=== PATIENT | female | born 1955 | race Caucasian/White ===

== ENCOUNTER → 2017-10-09 07:29 | Outpatient (CLI) | payer BC, SELFPAY ==
--- NOTE | 2017-10-09 07:23 | BI_ITS ---
MAMMOGRAPHY - BILATERAL SCREENING REASON FOR EXAM: Female, 61 years old. Routine annual screening examination. PERTINENT HISTORY: Non-contributory. TECHNIQUE: Digital bilateral breast inderjit (3D mammographic acquisition) in the CC and MLO projections. 2-D mediolateral oblique (MLO) and craniocaudad (CC) views of both breasts were obtained. CAD: Full Field Digital Mammography with Computer Added Detection was performed. COMPARISON: Comparison is made with prior study dated August 22, 2016 and June 18, 2014. FINDINGS: Breast Composition: There are scattered areas of fibroglandular density. There are no dominant masses or suspicious calcifications. Stable calcified nodule in the upper outer aspect of the left breast most likely representing a fibroadenoma. No other significant abnormalities are identified. There has been no significant change since the prior study. BI/SCREENING MAMM (CAD), BILAT IMPRESSION: Stable bilateral screening mammogram. Yearly follow-up mammogram recommended. (A) ASSESSMENT CATEGORY: BIRADS Category 2: Benign. A letter regarding these results will be sent to the patient by the facility within 30 days. Approximately 10% of breast cancers are not detected by mammography. A normal mammogram should not delay biopsy of a clinically suspicious abnormality. [id number] Electronically Signed: Brijesh Ruiz MD at 10:25 EDT Tel [phone], Service support ,
== END ==
PROVIDERS: Family Provider Internal Medicine; PCP Internal Medicine; Visit Provider Internal Medicine
DX: Z12.31 Encounter for screening mammogram for malignant neoplasm of breast (principal)
CPT/HCPCS: 77063; 77067

== ENCOUNTER → 2019-03-18 09:56 | Outpatient (CLI) | payer BC, SELFPAY ==
--- NOTE | 2019-03-18 10:02 | RAD_ITS ---
STUDY: X-RAY - RIGHT KNEE REASON FOR EXAM: Female, 63 years old. Right knee pain TECHNIQUE: 4 view(s) of the knee. COMPARISON: None. FINDINGS: Normal visualized distal femur. Normal visualized proximal tibia and fibula. Normal proximal tibiofibular articulation. Normal medial femorotibial compartment. Normal lateral femorotibial compartment. Normal patellofemoral articulation. The soft tissue structures are unremarkable. RAD/Knee 4 or More Views IMPRESSION: Normal x-ray examination of the knee. Electronically Signed: Oscar Boyd DO at 8:30 EST Tel , Service support ,
== END ==
PROVIDERS: Family Provider Internal Medicine; PCP Internal Medicine; Referring Provider Internal Medicine; Visit Provider Internal Medicine
DX: M25.561 Pain in right knee (principal)
CPT/HCPCS: 73564

== ENCOUNTER → 2019-03-25 12:39 | Outpatient (CLI) | payer BC, SELFPAY ==
--- NOTE | 2019-03-25 12:42 | BI_ITS ---
MAMMOGRAPHY - BILATERAL SCREENING 3-D TOMOSYNTHESIS REASON FOR EXAM: Female, 63 years old. Routine annual screening examination. PERTINENT HISTORY: History of breast cysts for 20+ years. TECHNIQUE: 2-D mammograms and 3-D Tomosynthesis of the breast (s) were performed. CAD was performed. COMPARISON: October 09, 2017, August 22, 2016 FINDINGS: The breast composition is almost entirely fat. Scattered benign calcifications are seen. Degenerated fibroadenoma in the left breast is stable. No dense spiculated masses or suspicious microcalcifications are identified. No architectural distortion is identified. There is no skin thickening or retraction. There has been no significant change since the prior study. BI/SCREEN MAMM (CAD) W/JOSE BILAT IMPRESSION: No mammographic signs of malignancy. Routine yearly mammograms recommended. ASSESSMENT CATEGORY: BIRADS Category 2: Benign. A letter regarding these results will be sent to the patient by the facility within 30 days. FOLLOW UP RECOMMENDATION: Yearly follow up mammogram recommended. (A) Approximately 10% of breast cancers are not detected by mammography. A normal mammogram should not delay biopsy of a clinically suspicious abnormality. Electronically Signed: Rosales Hyatt MD at 15:08 EST , Service support ,
--- NOTE | 2019-03-25 12:45 | BD_ITS ---
STUDY: DUAL ENERGY X-RAY ABSORPTIOMETRY / DXA REASON FOR EXAM: Female, 63 years old. The patient is postmenopausal. No loss of height. TECHNIQUE: Bone Mineral Density (BMD) measurements of lumbar spine and bilateral hips were obtained. COMPARISON: Comparison is made with prior study dated August 22, 2016. FINDINGS: Lumbar Spine (L1-L4): g/cm2 (1.047) / T-score (-1.3) / Z-score (0.2) Findings are suggestive of osteopenia with a low fracture risk. Left Femur Total: g/cm2 (0.824) / T-score (-1.5) / Z-score (-0.4) Left Femoral Neck: g/cm2 (0.790) / T-score (-1.8) / Z-score (-0.4) Right Femur Total: g/cm2 (0.882) / T-score (-1.0) / Z-score (0.1) Right Femoral Neck: g/cm2 (0.835) / T-score (-1.5) / Z-score (-0.1) The T-Scores on the most recent prior examination were: Lumbar Spine (L1-L4): There has been worsening of bone density since the previous examination. Left Femur Total: which represents a worsening of 2.1%. Right Femur Total: which represents a worsening of 1.7%. BD/Dexa Bone Density Study IMPRESSION: The patient is considered osteopenic as outlined below according to World Flako Organization (WHO) criteria with a moderate fracture risk. There has been worsening of bone density since the previous examination. Reference Information: The T-score is the number of standard deviations above or below the standard which is normal for young adults at their peak bone mineral density. The World Health Organization (WHO) interprets the T-scores as follows: Above -1 Normal bone density Between -1 and -2.5 Osteopenia Equal to / or below -2.5 Osteoporosis As a practical clinical guideline, osteopenia may be graded as follows: Mild -1 through -1.5 Moderate -1.6 through -2.0 Severe -2.1 through -2.4 The Z-score is the number of standard deviations above or below age-matched controls. A Z-score of less than -1.5 would be considered abnormal. References: 1. NIH Osteoporosis and Related Bone Diseases http://www.osteo.org 2. International Society for Clinical Densitometry http://www.iscd.org 3. National Osteoporosis Foundation http://www.nof.org Electronically Signed: Brijesh Ruiz, at 9:01 EST , Service support ,
== END ==
PROVIDERS: Family Provider Internal Medicine; PCP Internal Medicine; Referring Provider Internal Medicine; Visit Provider Internal Medicine
DX: Z12.31 Encounter for screening mammogram for malignant neoplasm of breast (principal); Z78.0 Asymptomatic menopausal state
CPT/HCPCS: 77063; 77067; 77080

== ENCOUNTER → 2019-05-26 10:58 | Outpatient (CLI) | payer BC, SELFPAY ==
--- NOTE | 2019-05-26 11:09 | EKG12_ITS ---
Test Reason : PRE-OP Blood Pressure : / mmHG Vent. Rate : 069 BPM Atrial Rate : 069 BPM P-R Int : 148 ms QRS Dur : 078 ms QT Int : 408 ms P-R-T Axes : 063 000 030 degrees QTc Int : 437 ms Normal sinus rhythm with sinus arrhythmia Normal ECG Confirmed by REYNALDO FERREIRA, FAMILIA ([id number]), make up editor IRMA STONE ([id number]) on 05/26/2019 12:33:03 PM Referred By: Rosales Gutiérrez Confirmed By:FAMILIA JACOBS MD
[2019-05-26 12:52] LABS: Hematocrit 43.2 % (37-47); Hemoglobin 14.9 g/dL (12.0-15.0); Mean Corp Hgb Conc 34.5 g/dL (32-36); Mean Corpuscular Volume 98.6 fL (81-99); Mean Platelet Vol. 9.2 fl (6.2-12.0); Platelet Count 353 K/mm3 (150-450); RBC Distribution Width CV 11.5 % (11.6-14.6); Red Blood Count 4.38 M/mm3 (4.2-5.4); White Blood Count 7.1 K/mm3 (4.4-11.0)
[2019-05-26 13:05] LABS: Anion Gap 4 (5-15); BUN 13 mg/dL (7-18); BUN/Creat Ratio 21.8 RATIO (10-20); Chloride 104 mmol/L (98-107); EST Glomerular Filtration Rate 108 mL/min (>60); Est Glom Filt Rate - Afr Amer 131 mL/min (>60); Glucose 94 mg/dL (74-106); Potassium 3.4 mmol/L (3.5-5.1); Sodium Level 137 mmol/L (136-145)
== END ==
PROVIDERS: PCP Internal Medicine; Referring Provider Physician Assistant; Visit Provider Physician Assistant
DX: Z01.810 Encounter for preprocedural cardiovascular examination (principal); Z01.818 Encounter for other preprocedural examination
CPT/HCPCS: 36415; 80048; 85027; 93005

== ENCOUNTER 2019-06-25 07:30 | Outpatient (RCR) | payer BC, SELFPAY ==
--- NOTE | 2019-06-11 14:04 | HP.PTEVAL_ITS ---
Patient's Visit Information DAVION URIOSTEGUI is a 63 year old F referred to Physical Therapy by Rosales Gutiérrez PA-C with a diagnosis of R knee arthroscopy 05/04/19. Date of Evaluation: 06/11/19 Physical Therapist: Kalin Cormier PT, ATC - Visit Plan Frequency: 2-3x /Week Duration: 4-6 Weeks Plan: R knee stretching and strengthening, balance and proprio, core stab ex's, nu step, and HEP - Subjective Findings: DOS: 06/04/19. Pt reports she had arthroscopy performed one week ago for a medial meniscal tear. Pt reports she is still sore at this time, and isn't sure she has felt any relief at this time. Pt reports prior to surgery, her R knee would catch and she would experience a lot of pain. Pt reports she has no restrictions at this time. Pt reports she has 13 steps to her bathroom, and negotiates them one step at a time for the most part. No tingling or numbness in R LE. Occasional sleep difficulty secondary to pain. 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 0/10 pain at resting, 3/10 pain at worst - Pain R knee Pain Intensity (Out of 10): 0 Pain Intensity Range: 3 - Objective Neuro: B LE sensation is WNL to light touch. B achilles reflex= 2/3. Girth at joint line: L knee 35 cm, R knee 36.5 cm. Observation: Incisions healing well. No obvious signs of infection. ROM: L knee 0-135, R knee 0-98 degrees. MMT: L knee 5/5 throughout, R knee 3+/5 throughout - Goals Goal 1:: Decrease R knee pain x 50% to aid with sleep Goal Time Frame: 4-6 Weeks Goal 2:: Increase R knee ROM x 20 degrees to aid with restoring a more normal gait pattern Goal Time Frame: 4-6 Weeks Goal 3:: Increase R knee strength x 1 grade to aid with stair negotiation Goal Time Frame: 4-6 Weeks Goal 4:: I with HEP Goal Time Frame: 4-6 Weeks - Rehabilitation Potential Physical Therapy Diagnosis: Pt has R knee pain, weakness, and limited ROM secondary to R knee arthroscopy Rehabilitation Potential: Good - Anticipated Interventions Patient/Client Instruction: Educate patient on: Condition, Plan of Care For the Purpose of:: To improve self management Therapeutic Exercise to Include: Strength training, Endurance training, Balance training, Flexibilty training, Gait and locomotor training, Active ROM, Dynamic Lumbar Stabilization For the Purpose of:: To decrease pain, To increase ROM, To improve muscle pe rformance and motor function Cryotherapy (ice pack, ice massage): Yes For the Purpose of:: To decrease pain Thank you for the opportunity to evaluate your patient. For Medicare and Medicare HMO plans, please review the plan of care and approve it. It will need to be FAXED BACK to us at [phone] for Medicare purposes. For Medicare only, by signing this I certify the plan of care. Please let me know if there are questions or concerns regarding this plan of care. Physician Signature: Date:
--- NOTE | 2019-06-25 07:55 | HP.PTDCSUM ---
HP - PT D/C Summary It has been my pleasure to treat DAVION URIOSTEGUI under orders from Rosales Gutiérrez PA-C, for the diagnosis of R knee arthroscopy 05/04/19 for a total of 4 visit(s). Discharge Date: Please see the following information for a summary of their discharge status. - Subjective Subjective: I feel good. I have no pain - Pain R knee Pain Intensity (Out of 10): 0 - Overall Improvement % Improvement: 95 - Objective Objective/Function: 0/10 pain. R knee MMT: 09/01. R knee ROM: 0-134. Rx goals achieved - Goals Goal 1:: Decrease R knee pain x 50% to aid with sleep Goal Progress: Goal Met Goal 2:: Increase R knee ROM x 20 degrees to aid with restoring a more normal gait pattern Goal Progress: Goal Met Goal 3:: Increase R knee strength x 1 grade to aid with stair negotiation Goal Progress: Goal Met Goal 4:: I with HEP Goal Progress: Goal Met - Plan Plan: discharge - D/C Information If there are questions or concerns regarding this patient's physical therapy, please feel free to call me at [phone]. Thank you for the referral of this patient. Sincerely, Kalin Cormier, PT, ATC
== END 2019-06-25 08:47 | disposition home or self-care (01) ==
LOC: PT 07:30
PROVIDERS: PCP Internal Medicine; Referring Provider Physician Assistant; Visit Provider Physician Assistant
DX: S83.241D Other tear of medial meniscus, current injury, right knee, subsequent encounter (principal)
CPT/HCPCS: 97110; 97161; 97164

== ENCOUNTER → 2019-11-06 09:09 | Outpatient (CLI) | payer BC, SELFPAY ==
--- NOTE | 2019-11-06 09:18 | RAD_ITS ---
STUDY: X-RAY - LEFT FOOT CLINICAL: Female, 64 years old. FALL DOWN STEPS, BRUISING AND SWELLING THROUGH OUT FOOT TECHNIQUE: 3 view(s) of the foot. COMPARISON: None. FINDINGS: Normal talus, calcaneus, and tarsal bones. Normal visualized subtalar, talonavicular, calcaneocuboid, tarsal and tarsometatarsal articulations. Nondisplaced transverse fracture at the base of the fifth metatarsal. Normal metatarsophalangeal joint of the great toe. Normal tibial and fibular sesamoid bones. Normal interphalangeal joint of the great toe. Normal phalanges of the great toe. Normal second through fifth metatarsophalangeal joints. Normal interphalangeal joints and phalanges of the lesser toes. Soft tissue swelling. RAD/Foot min 3 Views IMPRESSION: Nondisplaced transverse fracture through the base of the fifth metatarsal with overlying soft tissue swelling. Electronically Signed: Brijesh Ruiz, at 9:45 EDT , Service support ,
== END ==
PROVIDERS: PCP Internal Medicine; Referring Provider Internal Medicine; Visit Provider Internal Medicine
DX: S92.355A Nondisplaced fracture of fifth metatarsal bone, left foot, initial encounter for closed fracture (principal); W10.9XXA Fall (on) (from) unspecified stairs and steps, initial encounter; Y93.9 Activity, unspecified; Y92.9 Unspecified place or not applicable; Y99.9 Unspecified external cause status
CPT/HCPCS: 73630

== ENCOUNTER → 2021-04-06 10:00 | Outpatient (CLI) | payer BC, SELFPAY ==
--- NOTE | 2021-04-06 10:04 | BI_ITS ---
MAMMOGRAPHY - BILATERAL SCREENING REASON FOR EXAM: Female, 65 years old. Routine annual screening examination. PERTINENT HISTORY: Non-contributory. TECHNIQUE: Digital bilateral breast jose (3D mammographic acquisition) in the CC and MLO projections. 2-D mediolateral oblique (MLO) and craniocaudad (CC) views of both breasts were obtained. CAD: Full Field Digital Mammography with Computer Added Detection was performed. COMPARISON: Comparison is made with prior study dated 03/25/2019 and 10/09/2017. FINDINGS: Breast Composition: There are scattered areas of fibroglandular density. There are no dominant masses or suspicious calcifications. Stable calcified nodule in the upper outer aspect of the left breast. Stable small benign-appearing bilateral axillary lymph nodes. No other significant abnormalities are identified. There has been no significant change since the prior study. BI/SCRN MAMM (CAD)W/JOSE BILAT IMPRESSION: Stable bilateral screening mammogram. Yearly follow-up mammogram recommended. (A) ASSESSMENT CATEGORY: BIRADS Category 2: Benign. A letter regarding these results will be sent to the patient by the facility within 30 days. Approximately 10% of breast cancers are not detected by mammography. A normal mammogram should not delay biopsy of a clinically suspicious abnormality. [id number] Electronically Signed: Brijesh Ruiz MD at 12:34 EST , Service support ,
--- NOTE | 2021-04-06 10:05 | BD_ITS ---
STUDY: DUAL ENERGY X-RAY ABSORPTIOMETRY / DXA REASON FOR EXAM: Female, 65 years old. [id number]. The patient is postmenopausal. TECHNIQUE: Bone Mineral Density (BMD) measurements of lumbar spine and bilateral hips were obtained. COMPARISON: Comparison is made with prior study 03/25/2019. FINDINGS: Lumbar Spine (L1-L4): g/cm2 (0.883) / T-score (-2.0) / Z-score (-0.1) Findings are suggestive of osteopenia with a moderate fracture risk. Left Femur Total: g/cm2 (0.768) / T-score (-1.4) / Z-score (-0.2) Left Femoral Neck: g/cm2 (0.653) / T-score (-1.8) / Z-score (-0.2) Right Femur Total: g/cm2 (0.790) / T-score (-1.2) / Z-score (0.0) Right Femoral Neck: g/cm2 (0.65 to) / T-score (-1.8) / Z-score (-0.2) The T-Scores on the most recent prior examination were: Lumbar Spine (L1-L4): There has been worsening of bone density since the previous examination. Left Femur Total: which represents an improvement of 0.6%. Right Femur Total: which represents a worsening of 3.6%. BD/Dexa Bone Density Study IMPRESSION: The patient is considered osteopenic as outlined below according to World [employer] Organization (WHO) criteria with a moderate fracture risk. There has been worsening of bone density since the previous examination. Reference Information: The T-score is the number of standard deviations above or below the standard which is normal for young adults at their peak bone mineral density. The World Health Organization (WHO) interprets the T-scores as follows: Above -1 Normal bone density Between -1 and -2.5 Osteopenia Equal to / or below -2.5 Osteoporosis As a practical clinical guideline, osteopenia may be graded as follows: Mild -1 through -1.5 Moderate -1.6 through -2.0 Severe -2.1 through -2.4 The Z-score is the number of standard deviations above or below age-matched controls. A Z-score of less than -1.5 would be considered abnormal. References: 1. NIH Osteoporosis and Related Bone Diseases www osteo.org 2. International Society for Clinical Densitometry www iscd.org 3. National Osteoporosis Foundation www nof.org Electronically Signed: Brijesh Ruiz MD at 9:25 EST , Service support ,
== END ==
PROVIDERS: PCP Internal Medicine; Visit Provider Internal Medicine
DX: Z12.31 Encounter for screening mammogram for malignant neoplasm of breast (principal); Z78.0 Asymptomatic menopausal state; M85.80 Other specified disorders of bone density and structure, unspecified site
CPT/HCPCS: 77063; 77067; 77080

== ENCOUNTER 2021-06-23 09:28 | Outpatient (CLI) | payer BC, SELFPAY ==
[2021-06-23 10:21] LABS: Absolute Lymphocyte Count 1.96 X10^3/uL (0.83-4.51); Basophil# 0.06 X10^3/uL; Basophil% 0.9 % (0-1); Eosinophil# 0.22 X10^3/uL; Eosinophils% 3.2 % (0-5); Hematocrit 43.2 % (37-47); Hemoglobin 14.1 g/dL (12.0-15.0); Lymphocyte # 1.96 X10^3/ul (0.83-4.51); Lymphocyte % 28.3 % (19-41); Mean Corp Hgb Conc 32.6 g/dL (32-36); Mean Corpuscular Hgb 33.7 pg (27.0-32.0); Mean Corpuscular Volume 103.3 fL (81-99); Monocyte# 0.65 X10^3/uL; Monocyte% 9.4 % (0-10); NRBC Flagged by Analyzer 0 % (0-5); Neutrophil # 4.01 X10^3/uL (2.7-7.7); Neutrophil % 57.8 % (47-70); Platelet Count 321 K/mm3 (150-450); RBC Distribution Width CV 11.8 % (11.6-14.6); RBC Distribution Width SD 44.7 fl (35.1-43.9); Red Blood Count 4.18 M/mm3 (4.2-5.4); White Blood Count 6.9 K/mm3 (4.4-11.0)
[2021-06-23 10:48] LABS: ALB/GLOB Ratio 0.9 RATIO (0.9-2.4); AST(SGOT) 57 U/L (15-37); Alanine Aminotransfer ALT/SGPT 47 U/L (13-56); Albumin, Serum 3.4 g/dL (3.2-5.0); Alkaline Phosphatase 107 U/L (45-117); Anion Gap 4 (5-15); BUN 16 mg/dL (7-18); BUN/Creat Ratio 22.6 RATIO (10-20); Calcium,Total 9.2 mg/dL (8.5-10.1); Chloride 105 mmol/L (98-107); Creatinine, Serum 0.71 mg/dL (0.55-1.02); EST Glomerular Filtration Rate 88 mL/min (>60); Est Glom Filt Rate - Afr Amer 106 mL/min (>60); Globulin 3.8 g/dL (2.2-4.2); Glucose 111 mg/dL (74-106); Potassium 4.3 mmol/L (3.5-5.1); Protein, Total 7.2 g/dL (6.4-8.2); Sodium Level 139 mmol/L (136-145); Thyroid Stim Hormone (TSH) 3.31 uIU/mL (0.358-3.74)
[2021-06-25 14:08] LABS: CHOLESTEROL TOTAL 288 mg/dL (100-199); HDL-C 74 mg/dL (>39); SMALL LDL-P 377 nmol/L (<=527); TRIGLYCERIDES 166 mg/dL (0-149)
[2021-06-25 17:30] LABS: INSULIN RESISTANCE SCORE 41 (<=45); LDL SIZE 21.8 nm (>20.5); LDL-C (NIH CALC) 184 mg/dL (0-99); LDL-P 1821 nmol/L (<1000)
== END 2021-06-23 23:59 | disposition home or self-care (01) ==
LOC: MTLAB 09:30
PROVIDERS: PCP Internal Medicine; Visit Provider Internal Medicine
DX: R94.31 Abnormal electrocardiogram [ECG] [EKG] (principal); E78.00 Pure hypercholesterolemia, unspecified
CPT/HCPCS: 36415; 80053; 80061; 83704; 84443; 85025

== ENCOUNTER 2022-03-22 08:58 | Emergency (ER) | payer BC, SELFPAY ==
[2022-03-22 08:58] VITALS: BP 167/98; PULSE 94; RESP 14; TEMP 36.2; O2SAT 97; BMI 28.8
--- NOTE | 2022-03-22 09:20 | EX.ED.GENINJ ---
HPI History of Present Illness Chief Complaint: Laceration Detail of Chief Complaint: Hand laceration Informant: patient Onset/Context/Timing Onset: Yesterday Narrative Narrative: Patient presents secondary to laceration to the left palm. Approximate 15 hours ago she was working in her kitchen when she cut her left palm with a sharp knife. She is kept the area clean but was not sure she needed stitches. Tetanus shot was within 10 years. PFSH PFSH Medical History no medical history no medical history Home Medications NK 03/22/22 [History Last Taken Unknown] Allergy/AdvReac Type Severity Reaction Status Date / Time codeine AdvReac Vomiting Verified 03/22/22 09:00 Surgical History no surgical history Social History Smoking Status: Never smoker ROS ROS ED Constitutional Constitutional ED: Denies chills or fever(s) Eyes Eyes: Denies change in vision ENT ENT ED: Denies rhinorrhea or sore throat Cardiovascular Cardiovascular: Denies chest pain Respiratory/Chest Respiratory/Chest: Denies cough or dyspnea Gastrointestinal Gastrointestinal: Denies abdominal pain or vomiting Genitourinary Genitourinary ED: Denies dysuria Musculoskeletal Musculoskeletal: Reports extremity pain; Denies back pain Integumentary Reports other Details: Left palm laceration ; Denies Abrasions or rash Neurologic Neurologic: Denies headache(s) or weakness Psychiatric Psychiatric: Denies anxiety or depression Allergic/Immunologic Allergic/Immunologic ED: Denies lip swelling or urticaria EXAM Physical Exam Const Vital Signs: 03/22/22 08:58 Temperature 97.1 F L Temperature Source Temporal Pulse Rate 94 Respiratory Rate 14 Blood Pressure 167/98 H Blood Pressure Mean 121 Pulse Ox 97 Oxygen Delivery Method Room Air Positive well nourished and well developed General Appearance ED: well developed HEENT atraumatic Eyes EOMs intact bilaterally Chest Wall inspection of chest normal Resp normal respiratory effort Extremity Extremity Narrative: 1.5 cm superficial laceration noted to the thenar eminence of the left palm. No active bleeding. Full range of motion of all digits with good cap refill and sensation. Neuro oriented x3, no focal motor deficits and no sensory deficits noted Skin Skin Narrative: Laceration as noted above. MDM MDM MDM Narrative Medical decision making narrative: Wound is greater than 12 hours old and patient would prefer to glue the wound if possible. I think this is acceptable given the superficial nature of the laceration and location. Wound was thoroughly cleansed and irrigated. Dermabond is placed over the wound. Wound care as discussed and return instructions given. Discharge Plan Triage Chief Complaint: Laceration ED Provider: Samantha Joe Dx/Rx/DC Orders Clinical Impression: Hand laceration Instructions: ED Laceration, Hand: All Closures Prescriptions: No Action NK Primary Care Provider: Shanell Vera Referrals: Shanell Vera DO [Primary Care Provider] - As Needed Disposition Disposition: Home, Self Care
== END 2022-03-22 09:43 | disposition home or self-care (01) ==
LOC: ED 09:36
PROVIDERS: Emergency Provider Emergency Medicine; PCP Internal Medicine; Visit Provider Emergency Medicine
DX: S61.412A Laceration without foreign body of left hand, initial encounter (principal); W26.0XXA Contact with knife, initial encounter; Y92.000 Kitchen of unspecified non-institutional (private) residence as the place of occurrence of the external cause
CPT/HCPCS: 12001; 99283

== ENCOUNTER → 2024-01-21 | Outpatient (CLI) | payer MEDICARE, BC, SELFPAY ==
--- NOTE | 2024-01-21 07:22 | CT_ITS ---
PROCEDURE: CT LEFT KNEE WITHOUT CONTRAST REASON FOR EXAM: Female, 68 years old. Preoperative planning for the [employer] Robotic knee surgery. Knee pain. TECHNIQUE: Transaxial CT of the hip, knee and ankle were obtained. Coronal and sagittal reconstruction images of the knee were provided. Individualized dose optimization techniques were used for this CT. COMPARISON: None. FINDINGS: Standard protocol for the preoperative planning for the [employer] robotic knee surgery was performed. 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 CT/Extremity Lower without Contra IMPRESSION: Preoperative M[employer] Robotic knee surgical CT evaluation with findings as described above. Electronically Signed: Rosales Hyatt MD at 9:29 EDT ,
== END | disposition home or self-care (01) ==
LOC: CT 07:18
PROVIDERS: PCP Internal Medicine; Referring Provider Specialist; Visit Provider Specialist
DX: M17.12 Unilateral primary osteoarthritis, left knee (principal); M94.262 Chondromalacia, left knee; S83.242D Other tear of medial meniscus, current injury, left knee, subsequent encounter; X58.XXXD Exposure to other specified factors, subsequent encounter
CPT/HCPCS: 73700

== ENCOUNTER 2024-01-28 07:00 | Observation (INO) | payer MEDICARE, BC, SELFPAY ==
[2024-01-10 15:53] LABS: Absolute Lymphocyte Count 2.06 X10^3/uL (0.83-4.51); Absolute Neutrophil Count 4.1 X10^3/uL (2.0-7.7); Basophil# 0.08 X10^3/uL; Basophil% 1.1 % (0-1); Eosinophil# 0.18 X10^3/uL; Eosinophils% 2.5 % (0-5); Hematocrit 41.5 % (37-47); Hemoglobin 13.8 g/dL (12.0-15.0); Lymphocyte # 2.06 X10^3/ul (0.83-4.51); Lymphocyte % 28.7 % (19-41); Mean Corp Hgb Conc 33.3 g/dL (32-36); Mean Corpuscular Hgb 33.7 pg (27.0-32.0); Mean Corpuscular Volume 101.2 fL (81-99); Mean Platelet Vol. 9.3 fl (6.2-12.0); Monocyte# 0.74 X10^3/uL; Monocyte% 10.3 % (0-10); NRBC Flagged by Analyzer 0 % (0-5); Neutrophil # 4.08 X10^3/uL (2.7-7.7); Platelet Count 326 K/mm3 (150-450); RBC Distribution Width CV 11.4 % (11.6-14.6); RBC Distribution Width SD 42.6 fl (35.1-43.9); White Blood Count 7.2 K/mm3 (4.4-11.0)
[2024-01-10 15:57] LABS: Albumin, Serum 3.4 g/dL (3.2-5.0); Anion Gap 8 (5-15); BUN 11 mg/dL (7-18); BUN/Creat Ratio 16.2 RATIO (10-20); Calcium,Total 9.8 mg/dL (8.5-10.1); Chloride 101 mmol/L (98-107); Creatinine, Serum 0.68 mg/dL (0.55-1.02); EST Glomerular Filtration Rate 92 mL/min (>60); Est Glom Filt Rate - Afr Amer 111 mL/min (>60); Glucose 110 mg/dL (74-106); Magnesium 2.1 mg/dL (1.6-2.6); Potassium 3.9 mmol/L (3.5-5.1); Sodium Level 136 mmol/L (136-145)
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
[2024-01-28] VITALS (15 sets, daily range): BP systolic 101–162; BP diastolic 54–100; PULSE 62–88; RESP 16–18; TEMP 35.8–37.4; O2SAT 93–100; BMI 27.3
[2024-01-28] MEDS: Vancomycin HCl 1,250 MG in 0.9% Normal Saline (250mL Bag) 250 ML 167 MG IV (07:23)
[2024-01-28] MEDS: Acetaminophen 500 MG Tablet 1000 MG PO ×3 (07:23→22:28)
[2024-01-28] MEDS: Magnesium 1 GM over 15 mins IV (07:23)
[2024-01-28] MEDS: Gabapentin 600 MG Tablet PO (07:23)
[2024-01-28] MEDS: Lactated Ringers 1,000 ML 999 ML IV ×2 (07:23→10:34)
--- NOTE | 2024-01-28 07:36 | PCM.PRE.AN2 ---
ASA Classification* ASA Classification ASA Classification: 2 Assessment & Plan Anesthesia* Anesthesia Assessment Anesthesia Assessment: Discussed sedation and/or anesthesia options, risks, benefits, and alternatives with patient/parents/legal guardian/POA. Questions invited. The patient/parents/legal guardian/POA seems to understand and agrees to proceed with anesthesia plan. Reviewed the physical assessment, medical history, allergy history and patient home medications list prior to surgery/procedure/anesthetic and documented any changes. Performed airway and anesthesia risk assessments. Anesthesia Type Anesthesia Type: Spinal (block consented) Anesthesia Focused Assessment* Temperature: 99.4 F Pulse Rate: 85 Blood Pressure: 162/92 Respiratory Rate: 18 Pulse Ox: 99 Airway Assessment Mouth opens: >3 cm Mallampati Score: II Focused Labs Anesthesia Preop lab: CBC WBC 7.2 K/mm3 (4.4-11.0) 01/10/24 11:46 RBC 4.10 M/mm3 (4.2-5.4) L 01/10/24 11:46 Hgb 13.8 g/dL (12.0-15.0) 01/10/24 11:46 Hct 41.5 % (37-47) 01/10/24 11:46 Plt Count 326 K/mm3 (150-450) 01/10/24 11:46 CHEMISTRY Potassium 3.9 mmol/L (3.5-5.1) 01/10/24 11:46 Sodium 136 mmol/L (136-145) 01/10/24 11:46 Magnesium 2.1 mg/dL (1.6-2.6) 01/10/24 11:46 BUN 11 mg/dL (7-18) 01/10/24 11:46 Creatinine 0.68 mg/dL (0.55-1.02) 01/10/24 11:46 Glucose 110 mg/dL (74-106) H 01/10/24 11:46 TSH 3.31 uIU/mL (0.358-3.74) 06/23/21 09:32 COAG Pre-Assessment Diagnosis/Proposed Procedure Planned Operative Procedure(s): ROBOTIC ASSISTED LEFT TOTAL KNEE ARTHROPLASTY Anesthesia History 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 When Was Last Pacemaker Check QUESTION #4 FULL TEXT: You/Your Family Experience fever (hyperthermia) with Anesthesia Last Oral Intake Last Oral intake: Last Oral Intake NPO since 05:30 01/28/24 07:19 Meds taken in AM with sips of No 01/28/24 07:19 water? Meds patient instructed to take am of surgery PONV PONV - adult secondary education instructor: PONV - adult secondary education instructor Female Yes 01/17/24 14:17 HX of Motion Sickness Yes 01/17/24 14:17 HX of N/V After Surgery No 01/17/24 14:17 Non-Smoker Yes 01/17/24 14:17 Duration of Surgery greater Yes 01/17/24 14:17 than 60 minutes Number of Risk Factors 4 01/17/24 14:17 PONV Score Severe Risk 01/17/24 14:17 Height & Weight Height & Weight: Anesthesia: Height & Weight Height 5 ft 5 in 01/28/24 07:19 Weight: 74.7 kg 01/28/24 07:19 Body Mass Index (BMI) 27.3 01/28/24 07:19 Respiratory Assessment Respiratory Assessment - adult secondary education instructor: Respiratory Tract Infection Hx - adult secondary education instructor Hx Respiratory Tract Infection No 01/17/24 14:17 STOP Sleep Apnea STOP Sleep Apnea - adult secondary education instructor: STOP Sleep Apnea - adult secondary education instructor Hx Hypertension No 01/17/24 14:17 Hx Sleep Apnea No 01/17/24 14:17 CPAP BIPAP Do you snore loudly (louder No 01/17/24 14:17 than talking or can be heard Do you often feel tired/ Yes 01/17/24 14:17 fatigued/ sleepy during daytime? Has anyone observed you stop No 01/17/24 14:17 breathing during sleep? STOP Results Negative 01/17/24 14:17 QUESTION #5 FULL TEXT : Do you snore loudly (louder than talking or can be heard through closed doors)? 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 Specify any problems Hx of Preganancy in last 3 No 01/17/24 14:17 Months Nurse Filling Out Transfusion DSCHRIBER 01/17/24 14:17 & Questions: Date: 01/17/24 01/17/24 14:17 Time: 14:18 01/17/24 14:17 Patient unable to answer at this time (ie. confused, unrespo /Reproduction History /Reproductive History - adult secondary education instructor: /Reproductive Hx- adult secondary education instructor Hx Now No 01/17/24 14:17 Gestational Age (in weeks): EDC: Hx Hx Para Hx Section SAB No 01/17/24 14:17 Active Medications Active Medications: Current Medications Generic Name Dose Route Start Last Admin Trade Name Freq PRN Reason Stop Dose Admin Acetaminophen 1,000 mg 01/28/24 08:45 01/28/24 07:23 Acetaminophen 500 Mg Tablet PO 01/28/24 08:46 1,000 mg X1 ONE Administration Acetaminophen 1,000 mg 01/28/24 14:00 Acetaminophen 500 Mg Tablet PO Q8 AMADEO Aspirin 81 mg 01/28/24 10:00 Aspirin 81 Mg Tab.Chew PO BID AMADEO Atorvastatin Calcium 40 mg 01/28/24 22:00 Atorvastatin Calcium 40 Mg Tablet PO QHS AMADEO Sodium Chloride 77.4 ml/ 0 ml 01/28/24 08:45 Ropivacaine 200 mg/ OPERA.SITE 01/28/24 08:46 Epinephrine HCl 0.6 mg/ X1 ONE Ketorolac Tromethamine 30 mg/ Morphine Sulfate 5 mg Dexamethasone Sodium Phosphate 10 mg 01/28/24 08:45 Dexamethasone 10 Mg/Ml Vial IV 01/28/24 08:46 X1 ONE Doxycycline Monohydrate 100 mg 01/29/24 13:00 Doxycycline 100 Mg Capsule PO BID [facility] Enteral Nutritional Formula 237 ml 01/28/24 08:00 Ensure Surgery 237 Ml Liquid PO TIDCM [facility] Famotidine 20 mg 01/28/24 10:00 Famotidine 20 Mg Tablet PO DAILY [facility] Gabapentin 600 mg 01/28/24 08:45 01/28/24 07:23 Gabapentin 600 Mg Tablet PO 01/28/24 08:46 600 mg X1 ONE Administration Lactated Ringer's 1,000 mls @ 999 mls/hr 01/28/24 08:45 01/28/24 07:23 IV 01/28/24 09:45 999 mls/hr .Q1H1M AMADEO Administration Tranexamic Acid 1,000 mg/ 110 mls @ 660 mls/hr 01/28/24 08:45 Sodium Chloride IV 01/28/24 08:54 X1 ONE Tranexamic Acid 1,000 mg/ 110 mls @ 660 mls/hr 01/28/24 09:45 Sodium Chloride IV 01/28/24 09:54 X1 ONE Lactated Ringer's 1,000 mls @ 999 mls/hr 01/28/24 09:45 IV 01/28/24 10:45 .Q1H1M [facility] Lactated Ringer's 1,000 mls @ 125 mls/hr 01/28/24 10:45 IV 01/28/24 18:44 .Q8H [facility] Vancomycin HCl 1,250 mg/ 275 mls @ 167 mls/hr 01/28/24 07:15 01/28/24 07:23 Sodium Chloride IV 01/28/24 08:53 167 mls/hr PREOP ONE Administration Magnesium Sulfate 1 gm/ 102 mls @ 408 mls/hr 01/28/24 08:45 01/28/24 07:23 Dextrose IV 01/28/24 08:59 408 mls/hr X1 ONE Administration Cefazolin Sodium 1 gm in 50 mls @ 150 mls/hr 01/28/24 14:00 IV 01/28/24 22:19 Q8 [facility] Insulin Human Lispro 1 - 6 unit 01/28/24 08:45 Insulin Lispro 100 Unit/Ml Insuln.Pen SC 01/28/24 14:45 Q4H PRN PRN BG>/= 180, SEE PROTOCOL Protocol Ketorolac Tromethamine 15 mg 01/28/24 07:00 Ketorolac 15 Mg/Ml Vial IV 01/30/24 07:02 Q6H PRN PRN Pain Score 1-5 Lorazepam 0.5 mg 01/28/24 07:00 Lorazepam 0.5 Mg Tablet PO Q12H PRN anxiety Meloxicam 7.5 mg 01/30/24 10:00 Meloxicam 7.5 Mg Tablet PO BID [facility] Morphine Sulfate 2 - 4 mg 01/28/24 07:00 Morphine 2 Mg/Ml Syringe IV Q2H PRN PRN Pain Score 6-10 Non-Formulary Medication 125 mcg 01/28/24 10:00 Cholecalciferol (Vitamin D3) [Vitamin D3] PO DAILY [facility] Non-Formulary Medication 3,000 mcg 01/28/24 10:00 Cyanocobalamin (Vitamin B-12) [Vitamin B-12] SL DAILY [facility] Ondansetron HCl 4 mg 01/28/24 07:00 Ondansetron 4 Mg/2 Ml Vial IV Q8H PRN PRN NAUSEA Oxycodone HCl 5 - 10 mg 01/28/24 07:00 Oxycodone 5 Mg Tablet PO Q4H PRN PRN Pain Score 4-10 Promethazine HCl 12.5 mg 01/28/24 07:00 Promethazine 25 Mg/Ml Syringe IM Q6H PRN PRN NAUSEA/VOMITING Protocol Senna/Docusate Sodium 2 tablet 01/28/24 10:00 Senna/Docusate Sodium 1 Tablet PO BID [facility] Medical History Wears glasses Post-menopausal Anxiety Alcohol use Ambulates with cane Arthritis Easy bruising History of ulceration Gastric reflux Non-smoker History of edema History of pain when walking History of irregular heartbeat Home Medications ?Medication ?Instructions ?Recorded ?Last Taken ?Type atorvastatin 40 mg tablet 40 mg PO QHS 01/17/24 01/27/24 History cholecalciferol (vitamin D3) 125 125 mcg PO DAILY 01/17/24 01/27/24 History mcg (5,000 unit) tablet (Vitamin D3) cyanocobalamin (vitamin B-12) 3,000 mcg sublingual DAILY 01/17/24 01/27/24 History 5,000 mcg/mL sublingual drops (Vitamin B-12) famotidine 20 mg tablet (Acid 20 mg PO DAILY PRN PRN GERD 01/17/24 01/27/24 History Controller) lorazepam 0.5 mg tablet (Ativan) 0.5 mg PO Q12H PRN anxiety 01/17/24 Unknown History meloxicam 15 mg tablet 15 mg PO DAILY 01/17/24 01/25/24 History Allergy/AdvReac Type Severity Reaction Status Date / Time codeine AdvReac Vomiting Verified 01/28/24 07:18 Surgical History Hx of colonoscopy Hx of right cataract extraction Hx of left cataract extraction Hx of knee surgery Social History Smoking Status: Never smoker Review of Systems (Anesthesia) ROS Narrative System reviewed and no additional complaints, except as documented.
[2024-01-28 07:52] LABS: Bedside Glucose 131 mg/dL (74-106)
[2024-01-28] MEDS: TXA 1000mg in NS100 100ml (IVPB at Incision) 660 MG IV (08:35)
[2024-01-28] MEDS: JPS (Morphine 10mg/ml) OPERA.SITE (08:41)
--- NOTE | 2024-01-28 08:45 | KNEE_PTH ---
PATIENT: DAVION URIOSTEGUI LOC: [facility] U#:[id number] AGE/SX: 68/F ROOM: PA319 RE01/28/[address]: Dr. Evin Diane MD : 1955 BED: 1 DIS: 01/29/2024 SPEC #: [id number] RECD: 01/28/24 13:17 STATUS: VU BROOKS #: [id number] AMY: 01/28/24 08:[address]: Evin Diane DEPT: SURGICAL PATHOLOGY RECD BY: Lula Viera ENTERED: 01/28/24 13:41 SP TYPE: TOTAL KNEE OTHR DR: DO Dr. Vishal Mills DO Tissues: Knee, NOS Procedures: Decalcification bone/plaque Surgery Specimen Level IV HEADER OPERATION: Robotic assisted left total knee arthroplasty PRE-OP DIAGNOSIS: Severe left knee osteoarthritis with varus deformity TISSUE SUBMITTED: Left knee bone and tissue MICROSCOPIC DIAGNOSIS Bone and soft tissue, left knee, total knee replacement/resection: Pieces of bone with degenerative osteoarthritic changes. Fibroadipose tissue, fibroconnective tissue and reactive synovial tissue. JORY: 01/31/2024 MICROSCOPIC DESCRIPTION Slides are reviewed. GROSS DESCRIPTION Received is one container designated bone and soft tissue left knee. The specimen consists of multiple fragments of torres-yellow bone measuring in aggregate 9.5 x 8.0 x 2.5 cm. Also in the specimen container are multiple fragments of yellow-white soft tissue measuring in aggregate 9.0 x 6.0 x 2.0 cm. A number of bony fragments contain articular surfaces consistent with tibial plateau and femoral condyle and displaying prominent osteophyte formation, eburnation and bone erosion. Dispatch Associate sections are submitted in two cassettes as follows: 1 - soft tissue, 2 - bone after decalcification. / JORY. 01/28/2024 TC:5 CPT: 20214, 51252
[2024-01-28] MEDS: dexAMETHasone 10 MG/ML Vial IV (08:54)
[2024-01-28] MEDS: TXA 1000mg in NS100 100ml (IVPB at Closure) 660 MG IV (09:27)
--- NOTE | 2024-01-28 09:30 | PCM.OPRPT ---
Report of Operation Date of Procedure: 01/28/24 Pre-Operative Diagnosis: Left knee primary osteoarthritis Post-Operative Diagnosis: Left knee primary osteoarthritis Surgery/Procedure Performed:: Left knee minimally invasive robotic assisted total knee replacement Description of Surgical Findings:: Stable knee with good patella tracking Surgeon: Evin Diane air carrier operations inspector: Sony Abbasi Type of Anesthesia: Spinal Anesthesiologist: Yonatan Cantor Special Medications: 2 g Ancef, 1 g TXA at incision, 1 g TXA closure, 10 mg Decadron, joint cocktail (5 mg Duramorph, 30 mL of 0.5% Ropivicaine, 1000 units of epinephrine, 30 mg of Toradol), vancomycin Specimen's removed: Bony cuts Estimated Blood Loss (mL): 75 Fluids Replaced: 600 mL crystalloid Description of Procedure: Implants used: 1. Darshan size 2 triathlon cruciate retaining distal femoral press-fit component 2. Darshan size 2 press-fit tritanium tibial baseplate 3. Darshan X3 10 mm CS polyethylene Brief history operative indications: 68-year-old F with history of left knee osteoarthritis with radiographic findings with loss of joint space, osteophyte formation and subchondral sclerosis. Failed conservative measures as mentioned in the H&P. Discussion of total knee arthroplasty as well as risk and benefits were discussed the patient including but not limited to blood loss, DVTs, PEs, neurovascular damage, general risk of anesthesia including loss of life, and stiffness or instability were discussed with patient. Patient demonstrated understanding and was able to sign informed consent. Procedure: On the date of procedure patient's left lower extremity was marked in the preoperative area. The patient was then taken back to the operating room where the patient was placed on the table in the supine position. All bony prominences were identified a well-padded. Anesthesia assumed control of the C-spine and airway and remained controlled throughout the remainder of the procedure. A tourniquet was placed on the left upper thigh and the leg was prepped in a sterile fashion. The surgeon then scrubbed at this time .Upon reentering the room left lower extremity was draped in a standard orthopedic fashion. A timeout was then called and everyone agreed upon the side, the site, the procedure to be performed, patient's identity and antibiotics given. Esmarch bandage was used to exsanguinate the extremity and the tourniquet was placed up to 250 mmHg with the knee in flexion. A midline skin incision was made and sharp dissection was taken down through skin subcutaneous tissue and fat. The standard medial parapatellar incision was made and the patella was subluxed laterally. An Appropriate deep MCL release was done and the fat pad was resected. Our attention was then directed to the patella. The patella was everted and found to have appropriate cartilage to be retained. The knee was then flexed up in 2 femoral pins were placed inside the incision and 2 tibial pins were placed outside the incision in the medial tibia bicortically. Once this was completed the 2 checkpoints in the femur and tibia were placed. Knee was then flexed up and the bony landmarks were registered. Once this was completed knee was taken through range of motion and manually stressed allowing us to a plan for an appropriate tibial cut. The robotic arm was brought into the field sterilely and checkpoint and saw were registered. Based on the patient's deformity the tibial cut was made neutral to the tibial axis. At this time the tensioner was then placed in the joint and ligament tension was checked at 90 degrees and full extension. Based on the patient's ligamentous tension appropriate adjustments were made to the operative plan and ligament releases were done. Once we were happy with our operative plan with balanced flexion and extension gaps our attention was directed to the femur. The robot was brought into the field sterilely and registered. Posterior condylar cuts, anterior chamfer cuts and anterior cuts were appropriately made for a size 2 femur. When these were completed the saws were switched out in the distal femoral and posterior chamfer cuts were made. Protecting the soft tissue throughout this time. A size 2 tibial base plate was selected. the knee was flexed to 90 degrees and the soft tissues and posterior osteophytes were removed from the joint. 40 cc of the periarticular injection was injected into the posterior medial corner of the joint. The appropriate trials were then placed on the femur and tibia. A trial polyethylene was trialed to ensure proper balancing and stability of the knee. The appropriate tibial internal rotation was then marked with a bovie. Our attention was then directed to the patella. Patellar tracking was checked and deemed appropriate. Once we were happy lug holes were drilled for the femur and trial components were removed. the tibia was subluxed and pinned into place and the keel was punched and drilled appropriately. Final components were verified and opened, and cement was mixed in a vacuum. Corhythm Simplex cement was used. The wound was copiously irrigated with normal saline. When the cement was ready the components were impacted into place starting with the tibia, femur. The trial poly component was placed and the knee was placed in full extension. All excess cement was removed in the process. Once the cement had cured the tracking, alignment and balance were verified and a size 10 mm CS polyethylene component was placed. Once the final components were placed a 3-minute dilute Betadine lavage was performed followed by an Irrisept lavage was performed and the wound was copiously irrigated with normal saline solution and the periarticular injection was given. The wound was closed in a layer otero fashion using #1 vicryl interrupted sutures for the arthrotomy, 2-0 interrupted Vicryl suture for the subcuticular layer and lupillo for final skin closure. A sterile compressive dressing was then placed. The patient was then awakened from anesthesia, transferred to the [facility] and transferred to the PACU for recovery. Post op plan DVT ppx: ASA 81mg BID, thigh high compression stockings Follow up: in office in 2 weeks for wound check PT: to start POD #0 at hospital, outpatient PT should be arranged. Extended oral antibiotics postoperatively due to positive staph screening. Doxycycline 100 mg p.o. twice daily for 2 weeks My physician instructional assistant was a vital part of this case. He was important in appropriate retraction during the case, and protection of soft tissues during bony cuts. His intimate knowledge of the case and my steps aided in safe and expedient completion of the procedure as well as appropriate position of the leg during the case. He was also vital in assisting with closure under my direct supervision. Due to the complexity of this case robotic arm was used to assist in the surgery to improve accuracy and clinical outcomes. Complications No intraoperative complications Admit VTE Documentation VTE Present on Admission: No VTE Mechan Device Prophylaxis: SCD's and Thigh High AMRIT Hose VTE Pharm Prophylaxis ordered?: Yes
--- NOTE | 2024-01-28 10:35 | RAD_ITS ---
STUDY: X-RAY - LEFT KNEE REASON FOR EXAM: Female, 68 years old. Post op -- AP and Lateral xray of operative knee in PACU. TECHNIQUE: 2 views of the left knee. COMPARISON: None. FINDINGS: There are new postoperative changes related to left total knee arthroplasty with patellar resurfacing. There is a vertical staple line along the anterior aspect of the knee. There is gas in the patellofemoral joint recess and anterior soft tissues, compatible with recent surgery. The orthopedic hardware components are intact. There is no periprosthetic fracture. Normal proximal tibiofibular articulation. RAD/Knee 1 or 2 Views IMPRESSION: New postoperative changes related to left knee total knee arthroplasty. Electronically Signed: Thien Pike MD at 11:24 EDT ,
--- NOTE | 2024-01-28 13:09 | PCM.POST.ANE ---
Anesthesia: Postop Eval I Current Vital Signs Temperature: 96.5 F Pulse Rate: 88 Blood Pressure: 102/59 Respiratory Rate: 16 Pulse Ox: 96 Oxygen Delivery Method: Room Air Assessment Airway patent: Yes Spontaneous unlabored respirations: Yes Mental status: Awake and Calm nausea: No Vomiting: No Anesthesia Complication: No Fluid Hydration Crystalloid volume administer (ml): 800 Total IV fluid infused: 800 Progress Note Anesthesia document: Postop Eval 1 completed: Yes
[2024-01-28] MEDS: Senna/Docusate Sodium 1 Tablet 2 TABLET PO (13:49)
[2024-01-28] MEDS: Aspirin 81 MG TAB.CHEW PO ×2 (13:50→22:29)
[2024-01-28] MEDS: Famotidine 20 MG Tablet PO (13:50)
--- NOTE | 2024-01-28 16:17 | CASEMGMT ---
Addendum entered by Haley Ling 01/28/24 16:20: A SNF list was declined due to pt already having FOC in mind. BEATRIZ Buckner Original Note: Social Work- SW met with pt who states that she is wanting referral to [facility]. SW completed referral. BEATRIZ Buckner
[2024-01-28] MEDS: Cefazolin 1 GM/50 ML BAG IV (16:33)
--- NOTE | 2024-01-28 19:18 | PCM.PN.HOSP ---
Reason for Visit Reason for Visit: Diagnoses Encounter for other preprocedural examination (01/28/24) Subjective Subjective Patient was seen and examined today, she underwent a total left minimally invasive robotic assisted knee replacement due to osteoarthritis. Patient has a history of hyperlipidemia, it is planned that the patient will probably go to the rehab unit at [facility] if we can get insurance approval for this. Objective Data Objective Data Vital Signs: Vital Signs Temp Pulse Resp BP Pulse Ox O2 Del Method O2 Flow Rate 97.4 F L 85 16 121/79 H 96 Room Air 1 01/28/24 18:40 01/28/24 18:40 01/28/24 18:40 01/28/24 18:40 01/28/24 18:40 01/28/24 18:40 01/28/24 14:43 Oxygen Flow Rate (L/min) 1 Oxygen Delivery Method Room Air Weight: 74.7 kg Body Mass Index (BMI) 27.3 Intake & Output: Intake and Output for Last 24 Hours 01/26/24 01/27/24 01/28/24 23:59 23:59 23:59 Intake Total 2947 / 2947 Balance 2947 / 2947 Lab / Micro Data 01/10/24 11:46 01/10/24 11:46 Labs: Laboratory Results - last 24 hr 01/28/24 07:18: POC Glucose 131 H Micro: Microbiology 01/10/24 11:46 Nasal Secretion Nasal Screen MRSA/MSSA - Final Radiography Diagnostic Testing: Radiology Impression Knee X-Ray 01/28/24 10:35 IMPRESSION: New postoperative changes related to left knee total knee arthroplasty. Electronically Signed: Thien Pike MD at 11:24 EDT , Physical Exam Const alert, oriented x3, no apparent distress and healthy appearing General Appearance: cooperative, well kempt and well developed Orientation / Consciousness: awake, oriented to person, oriented to place and oriented to time HEENT normocephalic, head/scalp atraumatic and moist oral mucous membranes Eyes PERRL, EOMs intact bilaterally and conjunctivae normal Neck supple, no JVD, thyroid normal and no carotid bruits General: trachea midline Resp normal respiratory effort, no retractions, no use of accessory muscles and clear to auscultation bilaterally Auscultation: Negative for rales, rhonchi or wheezes Cardio regular rate, regular rhythm, S1 normal heart sound, S2 normal heart sound, no murmurs, no rub and no gallops GI normal to inspection, nondistended, normoactive bowel sounds, soft to palpation, non-tender and non-distended Skin no rashes or lesions noted General Skin Exam: no breakdown Neuro oriented x3, CN's II-XII intact bilaterally, no focal motor deficits and no sensory deficits noted Sensorium / Orientation: awake and alert Speech: speech normal Psych affect normal Assessment & Plan Assessment/Plan (1) Osteoarthritis: PLAN: Plan 1. Osteoarthritis-again patient underwent a left total knee replacement today and appears to be medically stable #2 hyperlipidemia-patient is on a statin #3 chronic anxiety-patient takes as needed Ativan #4 vitamin B12 deficiency-patient takes 3000 mcg of B12 daily, she will remain on this #5 postop day 0 left total knee replacement-PT and OT are seeing the patient, again we are going to attempt placement in the rehab department at [facility] when she is discharged from the hospital. Total clinical time spent by myself addressing patient's medical issues, reviewing all of her data, and collaborating with patient's care team: 30 minutes Charges/Coding Visit Charges Office Visits / Consults: [id number] OV L4 Est 30min
[2024-01-28] MEDS: Atorvastatin Calcium 40 MG Tablet PO (22:29)
[2024-01-28] MEDS: oxyCODONE 5 MG Tablet PO (22:30)
[2024-01-29] MEDS: Cefazolin 1 GM/50 ML BAG IV (00:44)
[2024-01-29] MEDS: Acetaminophen 500 MG Tablet 1000 MG PO ×2 (05:42→13:41)
[2024-01-29 06:00] VITALS: BP 155/91; PULSE 75; RESP 18; TEMP 36.6; O2SAT 98
[2024-01-29 07:04] LABS: Hematocrit 37.1 % (37-47); Hemoglobin 12.6 g/dL (12.0-15.0); Mean Corpuscular Hgb 34.4 pg (27.0-32.0); Mean Corpuscular Volume 101.4 fL (81-99); Mean Platelet Vol. 9.1 fl (6.2-12.0); Platelet Count 328 K/mm3 (150-450); RBC Distribution Width CV 11.5 % (11.6-14.6); RBC Distribution Width SD 42.8 fl (35.1-43.9); Red Blood Count 3.66 M/mm3 (4.2-5.4); White Blood Count 15.4 K/mm3 (4.4-11.0)
[2024-01-29 07:18] LABS: Anion Gap 7 (5-15); BUN 10 mg/dL (7-18); BUN/Creat Ratio 14.7 RATIO (10-20); Calcium,Total 9.5 mg/dL (8.5-10.1); Chloride 105 mmol/L (98-107); Creatinine, Serum 0.68 mg/dL (0.55-1.02); EST Glomerular Filtration Rate 92 mL/min (>60); Est Glom Filt Rate - Afr Amer 111 mL/min (>60); Estimated Creatinine Clearance 68.09 ml/min; Glucose 135 mg/dL (74-106); Potassium 3.8 mmol/L (3.5-5.1); Sodium Level 138 mmol/L (136-145)
[2024-01-29] MEDS: Aspirin 81 MG TAB.CHEW PO (08:06)
[2024-01-29] MEDS: Famotidine 20 MG Tablet PO (08:06)
[2024-01-29] MEDS: Cholecalciferol (Vit D3) 125 MCG CAPSULE (5,000 UNITS) PO (08:07)
[2024-01-29] MEDS: Cyanocobalamin 500 MCG Tablet 3000 MCG PO (08:07)
[2024-01-29] MEDS: Senna/Docusate Sodium 1 Tablet 2 TABLET PO (08:07)
--- NOTE | 2024-01-29 08:08 | PCM.PN.ORT ---
Subjective Subjective The patient was sitting in bedside chair upon examination. Patient denies any chest pain, shortness of breath, dizziness, lightheadedness, nausea or vomiting, or calf pain. Patient does state the pain is worse this morning and she does feel the block is worn off. She has been using the oxycodone overnight. Patient does have a two-story home in which there is concern about managing steps. We are having physical therapy assess her today for appropriate discharge planning. Case management is currently on board for assistance. Objective Data Objective Data Vital Signs: Vital Signs Temp Pulse Resp BP Pulse Ox O2 Del Method O2 Flow Rate 97.9 F 75 18 155/91 H 98 Room Air 1 01/29/24 06:00 01/29/24 06:00 01/29/24 06:00 01/29/24 06:00 01/29/24 06:00 01/29/24 08:02 01/28/24 14:43 Oxygen Flow Rate (L/min) 1 Oxygen Delivery Method Room Air Weight: 74.7 kg Body Mass Index (BMI) 27.3 Intake & Output: Intake and Output for Last 24 Hours 01/27/24 01/28/24 01/29/24 23:59 23:59 23:59 Intake Total 3913 / 3913 200 / 200 Balance 3913 / 3913 200 / 200 Lab / Micro Data 01/29/24 06:32 01/29/24 06:32 Labs: Laboratory Results - last 24 hr 01/29/24 06:32: WBC 15.4 H, RBC 3.66 L, Hgb 12.6, Hct 37.1, MCV 101.4 H, MCH 34.4 H, MCHC 34.0, RDW Std Deviation 42.8, RDW Coeff of Izabela 11.5 L, Plt Count 328, MPV 9.1, Sodium 138, Potassium 3.8, Chloride 105, Carbon Dioxide 26.0, Anion Gap 7, BUN 10, Creatinine 0.68, Estim Creat Clear Calc 68.09, Est GFR (MDRD) Af Amer 111, Est GFR (MDRD) Non-Af 92, BUN/Creatinine Ratio 14.7, Glucose 135 H, Calcium 9.5 Micro: Microbiology 01/10/24 11:46 Nasal Secretion Nasal Screen MRSA/MSSA - Final Radiography Diagnostic Testing: Radiology Impression Knee X-Ray 01/28/24 10:35 IMPRESSION: New postoperative changes related to left knee total knee arthroplasty. Electronically Signed: Thien Pike MD at 11:24 EDT , Physical Exam Narrative Vital signs stable and afebrile. SCDs and AMRIT hose are in place bilaterally Patient is able to plantarflex and dorsiflex actively. Sensation is intact to light touch to saphenous, sural, superficial and deep peroneal, and tibial distribution. Dressings are clean dry and intact. Negative Homans bilaterally, negative signs and symptoms of DVT. Const alert, oriented x3 and no apparent distress Assessment & Plan Assessment/Plan (1) Status post total left knee replacement: PLAN: 1. S/P robotic assisted left total knee arthroplasty POD #1 2. Continue Pain Medications: Tylenol, meloxicam, oxycodone. Do not take any other nonsteroidal anti-inflammatories while using meloxicam/Mobic. Patient will resume her home meloxicam upon discharge. 3. DVT Prophylaxis: Take 81 mg aspirin twice daily for 4 weeks postoperatively for DVT prophylaxis. Patient denies past history of DVT or pulmonary embolism. 4. PT/OT: Weightbearing as tolerated with walker. Appreciate recommendations for appropriate discharge planning. Patient did have a loss of balance while working with therapy yesterday. 5. H & H: 12.6/37.1, asymptomatic. Labs have been reviewed and stable 6. Reactive leukocytosis: 15.4, Afebrile. Patient did receive Decadron intraoperatively. No clinical signs of infection. 7. Currently on doxycycline for 2 weeks postoperatively due to findings of staph positive on preoperative workup. I discussed with the patient potential side effects of doxycycline including sensitivity to the sunlight and increased risk of skin burn. Recommend patient take appropriate precautions. Also recommend patient to take probiotic while on the antibiotic. Patient voiced understanding agreement. 8. Encouraged Incentive Spirometry 9. Patient is aware of postoperative constipation that can occur from 1-3 days postoperatively. Will continue with senna 2 tablets twice daily until first bowel movement. Patient was advised if not having a bowel movement after day 3 she is to contact orthopedics so appropriate change can be made. Patient voiced understanding. 10. Continue postoperative medical treatment per medicine 11. Disposition: Case management is currently involved with appropriate discharge planning. Patient is looking into [facility] rehabilitation unit. She does live in a two-story home in which there is concerns for managing steps. Physical therapy is currently on board as well for appropriate discharge planning. Once we have appropriate discharge planning we will move forward with discharge process. In the meantime patient will continue to work with physical therapy today. Her pain has been increased and will continue with above pain medications. I have reviewed the [place] Automated Rx Reporting System (OARRS) report for this patient for refill pattern and other prescriber involvement as part of the appropriate surveillance for the provision of acute and chronic controlled medications. The report was requested and reviewed on the date of this entry and was considered in the prescribing process. This dictation was created using voice recognition software. Phonetic and/or grammatical errors may exist.
[2024-01-29] MEDS: oxyCODONE 5 MG Tablet PO (08:30)
[2024-01-29 10:00] VITALS: BP 160/85; PULSE 67; RESP 18; TEMP 36.5; O2SAT 100
--- NOTE | 2024-01-29 11:35 | CASEMGMT ---
STEPHANIE DIXON Assessment Face to Face with patient for initial transition planning/care coordination assessment. STEPHANIE DIXON introduced self and role at [facility], pt voices understanding. Pt is A&Ox4 and is resting comfortably in bed and is calm. Care providers, pharmacy, and demographics verified. Admitting dx: Lt Total Knee LACE Strata: 1 PCP: Shanell Vera Specialists: Roxi (Ortho) Preferred Pharmacy: [facility] Insurance: [facility] A/B, [place] Prescription Benefit: Yes LNOK: Silvia Tovar (Mother), Crescencio Lopez(XH) Living Arrangements: Pt lives alone in a 3 story home with 13 steps to the upper level and 13 steps down to the basement. Pt states that there is only one step to enter the home ADLs/IADLs: Ind at baseline. Currently requiring assistance. Transportation: Self. Pt states that her mom is staying local for the next week or so and will be able to provide transportation in the meantime DME: [employer]. Cane. BP Monitor. Thermometer. Pt states that she is working on getting a walk-in shower HHC/SNF: Denies history Pt?s goal: Rehab to help return to PLOF Plan: [facility]. See SW notes. Pt has been accepted and the plan is for the pt to get the rehab she needs/wants to help her return home independently. Pt denies further questions or concerns at this time. Bassam Ge RN, CM
--- NOTE | 2024-01-29 11:52 | CASEMGMT ---
Met with patient to complete NAVA form. NAVA form explained to patient who voiced understanding and signed form. Original form placed in pt?s chart and copy provided to patient. Viji Foy, Discharge Planning Asst
--- NOTE | 2024-01-29 12:09 | CASEMGMT ---
Social Work- SW met with pt to advise of [facility] acceptance and advise that [facility] is planning for d/c tomorrow. Pt expressed agreement. BEATRIZ Buckner
[2024-01-29] MEDS: Doxycycline 100 MG CAPSULE PO (13:41)
--- NOTE | 2024-01-29 14:06 | PCM.TXEXTCAR ---
Diet Diet Order/Speech Therapy: 01/28/24 11:55 Diet: Regular - General Type of Dietary Supplement:: Ensure Surgery Routine Orders/Code Status Code Status: Full Code Wound(s) LEFT KNEE: Wound Type: Surgical Incision Therapies Weight Bearing: Weight bearing as tolerated (with walker) Physical Therapy: Eval and Treat Occupational Therapy: Eval and Treat Problem/Diagnosis (1) Status post total left knee replacement: Status: Acute Code(s): Z96.652 - Presence of left artificial knee joint Plan 1. Osteoarthritis-again patient underwent a left total knee replacement today and appears to be medically stable #2 hyperlipidemia-patient is on a statin #3 chronic anxiety-patient takes as needed Ativan #4 vitamin B12 deficiency-patient takes 3000 mcg of B12 daily, she will remain on this #5 postop day 1 left total knee replacement-PT and OT are seeing the patient, again we are going to attempt placement in the rehab department at [facility] when she is discharged from the hospital. #6 Leukocytosis seconday to steroid administration #7 Mild hypergycemia secondary to steroid administration Total clinical time spent by myself addressing patient's medical issues, reviewing all of her data, and collaborating with patient's care team: 30 minutes Allergies/Procedures Done in Hospital Allergies codeine Adverse Reaction (Verified 01/28/24 07:18) Vomiting Procedures: - (left knee replacement minimally invasive 01/28/24) Type of Care/Length of Stay Estimated LOS: Convalescent Care Less Than 30 days Type of Care Needed: Acute Rehab Rehab Potential: Good Prognosis: Good Additional Orders/Day of Discharge Day of Discharge: 01/29/24 Discharge Plan Admission Admit Date/Time: 01/28/24 07:00 Primary Reason for Your Visit: left knee replacement, OA, hyperlipidemia Attending Provider: Evin Diane Primary Care Provider: Shanell Vera Consulting Providers: Vishal Longoria Discharge Orders/Prescriptions Prescriptions: New sennosides-docusate sodium [Stimulant Laxative Plus] 8.6-50 mg Tablet 2 tab PO BID Qty: 0 0RF acetaminophen 500 mg Tablet 1,000 mg PO Q8 Qty: 0 0RF famotidine 20 mg Tablet 20 mg PO DAILY Qty: 0 0RF cyanocobalamin (vitamin B-12) 500 mcg Tablet 3,000 mcg PO DAILY Qty: 0 0RF doxycycline monohydrate 100 mg Capsule 100 mg PO BID Qty: 28 0RF Rx Instructions: administer for 14 days, then stop oxycodone 5 mg Tablet 5 - 10 mg PO Q4H PRN PRN (Reason: Pain Score 4-10) Qty: 0 0RF Eliquis 2.5 mg tablet 2.5 mg PO BID Qty: 24 0RF Rx Instructions: administer for twelve days starting tonite Continued atorvastatin 40 mg tablet 40 mg PO QHS cholecalciferol (vitamin D3) [Vitamin D3] 125 mcg (5,000 unit) tablet 125 mcg PO DAILY lorazepam [Ativan] 0.5 mg tablet 0.5 mg PO Q12H PRN (Reason: anxiety) Discontinued meloxicam 15 mg tablet 15 mg PO DAILY cyanocobalamin (vitamin B-12) [Vitamin B-12] 5,000 mcg/mL drops 3,000 mcg sublingual DAILY famotidine [Acid Controller] 20 mg tablet 20 mg PO DAILY PRN PRN (Reason: GERD) Referrals / Follow Up: Shanell Vera DO [Primary Care Provider] - Evin Diane MD [Med Staff - Active Staff] - See Referral Note (in two weeks) Disposition Disposition (needs filled in before D/C Order can be placed): Inpatient Rehab Unit/Facility
[2024-01-29 14:26] VITALS: BP 162/75; PULSE 71; RESP 18; TEMP 36.6; O2SAT 100
--- NOTE | 2024-01-29 15:31 | CASEMGMT ---
Social Work- SW received d/c from physician. RU and bedside nurse advised. SW notified pt. Pt has no other needs at this time. BEATRIZ Buckner
--- NOTE | 2024-01-29 15:32 | NURSING ---
Report called to Isamar in [facility]. Pt to go to room 404.
--- NOTE | 2024-01-29 16:05 | PN.HOSP_ITS ---
Reason for Visit Reason for Visit: Diagnoses Unspecified osteoarthritis, unspecified site (01/28/24) Encounter for other preprocedural examination (01/28/24) Presence of left artificial knee joint (01/28/24) Subjective Subjective Patient was seen and examined today, she appears stable for transfer to inpatient rehab at [facility], I talked with orthopedic surgery about her care today. Objective Data Objective Data Vital Signs: Vital Signs Temp Pulse Resp BP Pulse Ox O2 Del Method O2 Flow Rate 98 F 71 18 162/75 H 100 Room Air 1 01/29/24 14:26 01/29/24 14:26 01/29/24 14:26 01/29/24 14:26 01/29/24 14:26 01/29/24 14:26 01/28/24 14:43 Oxygen Flow Rate (L/min) 1 Oxygen Delivery Method Room Air Weight: 74.7 kg Body Mass Index (BMI) 27.3 Intake & Output: Intake and Output for Last 24 Hours 01/27/24 01/28/24 01/29/24 23:59 23:59 23:59 Intake Total 3913 / 3913 200 / 200 Balance 3913 / 3913 200 / 200 Lab / Micro Data 01/29/24 06:32 01/29/24 06:32 Labs: Laboratory Results - last 24 hr 01/29/24 06:32: WBC 15.4 H, RBC 3.66 L, Hgb 12.6, Hct 37.1, MCV 101.4 H, MCH 34.4 H, MCHC 34.0, RDW Std Deviation 42.8, RDW Coeff of Izabela 11.5 L, Plt Count 328, MPV 9.1, Sodium 138, Potassium 3.8, Chloride 105, Carbon Dioxide 26.0, Anion Gap 7, BUN 10, Creatinine 0.68, Estim Creat Clear Calc 68.09, Est GFR (MDRD) Af Amer 111, Est GFR (MDRD) Non-Af 92, BUN/Creatinine Ratio 14.7, Glucose 135 H, Calcium 9.5 Micro: Microbiology 01/10/24 11:46 Nasal Secretion Nasal Screen MRSA/MSSA - Final Physical Exam Narrative alert, oriented x3, no apparent distress and healthy appearing General Appearance: cooperative, well kempt and well developed Orientation / Consciousness: awake, oriented to person, oriented to place and oriented to time HEENT normocephalic, head/scalp atraumatic and moist oral mucous membranes Eyes PERRL, EOMs intact bilaterally and conjunctivae normal Neck supple, no JVD, thyroid normal and no carotid bruits General: trachea midline Resp normal respiratory effort, no retractions, no use of accessory muscles and clear to auscultation bilaterally Auscultation: Negative for rales, rhonchi or wheezes Cardio regular rate, regular rhythm, S1 normal heart sound, S2 normal heart sound, no murmurs, no rub and no gallops GI normal to inspection, nondistended, normoactive bowel sounds, soft to palpation, non-tender and non-distended Skin no rashes or lesions noted General Skin Exam: no breakdown Neuro oriented x3, CN's II-XII intact bilaterally, no focal motor deficits and no sensory deficits noted Sensorium / Orientation: awake and alert Speech: speech normal Psych affect normal Assessment & Plan Assessment/Plan (1) Status post total left knee replacement: PLAN: Plan 1. Osteoarthritis-again patient underwent a left total knee replacement postop day 1, she appears stable for transfer to inpatient rehab services at [facility] #2 hyperlipidemia-patient is on a statin #3 chronic anxiety-patient takes as needed Ativan #4 vitamin B12 deficiency-patient takes 3000 mcg of B12 daily, she will remain on this #5 postop day 1 left total knee replacement-patient will be transferred to the rehab unit today at [facility] #6 Leukocytosis seconday to steroid administration #7 Mild hypergycemia secondary to steroid administration Total clinical time spent by myself addressing patient's medical issues, reviewing all of her data, and collaborating with patient's care team: 40 minutes Charges/Coding Visit Charges Office Visits / Consults: [id number] OV L5 Est 40min
== END 2024-01-29 15:56 ==
LOC: SDC 10:19 → MS3 10:19
PROVIDERS: Anesthesiology; Admitting Provider Specialist; PCP Internal Medicine; Referring Provider Specialist; Visit Provider Specialist
PROC: 0SRD0JZ Replacement of Left Knee Joint with Synthetic Substitute, Open Approach (ICD-10-PCS; CPT 27447; principal; 2024-01-28 08:15)
DX: M17.0 Bilateral primary osteoarthritis of knee (principal); E55.9 Vitamin D deficiency, unspecified; E78.00 Pure hypercholesterolemia, unspecified; E53.8 Deficiency of other specified B group vitamins; I49.3 Ventricular premature depolarization; Z79.899 Other long term (current) drug therapy; M21.161 Varus deformity, not elsewhere classified, right knee; M21.162 Varus deformity, not elsewhere classified, left knee; F41.9 Anxiety disorder, unspecified; R73.9 Hyperglycemia, unspecified; T38.0X5A Adverse effect of glucocorticoids and synthetic analogues, initial encounter
CPT/HCPCS: 27447; S2900; 01402; 64447; 36415; 73560; 80048; 82040; 82962; 83735; 85025; 85027; 87077; 87081; 88305; 88311; 94668; 97110; 97162; 97166; 97530; 97535; 99252; J7050; J7120; G0463; J3475

== ENCOUNTER 2024-01-29 15:58 | Inpatient (IN) | payer MEDICARE, BC, SELFPAY ==
[2024-01-29 16:26] VITALS: BP 179/74; PULSE 77; RESP 16; TEMP 36.8; O2SAT 98; BMI 28.3
[2024-01-29] MEDS: oxyCODONE 5 MG Tablet PO ×2 (17:52→21:57)
[2024-01-29 17:59] VITALS: BP 179/74; PULSE 77; RESP 16; TEMP 36.8; O2SAT 98
--- NOTE | 2024-01-29 20:01 | HP.PCM_ITS ---
HPI - General General Date of Admission: 01/29/24 Date of Service: 01/29/24 Chief Complaint: Here for 3 hours daily rehabilitation, strengthening. HPI Narrative DAVION URIOSTEGUI, is a 68 Female who presents with followin01/28/2024 Admit [facility]. 01/28/2024 Dr. Diane performed left total knee replacement. 01/29/2024 Pain overnight controlled with oxycodone. PT/OT for discharge planning. Tylenol, Meloxicam, Oxycodone for pain control. Aspirin 81mg twice daily x 4 weeks for dvt prophylaxis. WBAT with walker. Doxycycline 100mg bid x 2 weeks, nasal swab positive for s. aureus. Bowel regimen for constipation. 01/29/2024 Admit to with debility, here for 3 hours daily rehabilitation, strengthening, prior to discharge home alone. Patient lives in [facility] and there are 13 steps to upper floor where bathroom located. [facility] Medical History (Updated 01/29/24 @ 20:[address] Andres Donis MD) Wears glasses Post-menopausal Anxiety Alcohol use Ambulates with cane Arthritis Easy bruising History of ulceration Gastric reflux Non-smoker History of edema History of pain when walking History of irregular heartbeat Home Medications ?Medication ?Instructions ?Recorded ?Last Taken ?Type atorvastatin 40 mg tablet 40 mg PO QHS cholesterol 01/17/24 01/27/24 History cholecalciferol (vitamin D3) 125 125 mcg PO DAILY vitamin 01/17/24 01/27/24 History mcg (5,000 unit) tablet (Vitamin D3) lorazepam 0.5 mg tablet (Ativan) 0.5 mg PO Q12H PRN anxiety 01/17/24 Unknown History acetaminophen 500 mg tablet 1,000 mg (2 x 500 mg) PO Q8 pain 01/29/24 Unknown Rx #0 tabs apixaban 2.5 mg tablet (Eliquis) 2.5 mg PO BID blood thinner #24 01/29/24 Unknown Rx tabs cyanocobalamin (vitamin B-12) 500 3,000 mcg (6 x 500 mcg) PO DAILY 01/29/24 Unknown Rx mcg tablet vitamin #0 tabs doxycycline monohydrate 100 mg 100 mg PO BID antibiotic #28 caps 01/29/24 Unknown Rx capsule famotidine 20 mg tablet 20 mg PO DAILY stomach #0 tabs 01/29/24 Unknown Rx oxycodone 5 mg tablet 5 - 10 mg (1 - 2 x 5 mg) PO Q4H 01/29/24 Unknown Rx PRN PRN Pain Score 4-10 #0 tabs sennosides 8.6 mg-docusate sodium 2 tab PO BID stool softener #0 tabs 01/29/24 Unknown Rx 50 mg tablet (Stimulant Laxative Plus) Allergy/AdvReac Type Severity Reaction Status Date / Time codeine AdvReac Vomiting Verified 01/28/24 07:18 Surgical History (Updated 01/29/24 @ 20:[address] Andres Donis MD) History of total left knee replacement (TKR) Hx of colonoscopy Hx of right cataract extraction Hx of left cataract extraction Hx of knee surgery Social History (Updated 01/29/24 @ 20:[address] Andres Donis MD) household members: none Smoking Status: Never smoker alcohol intake: never substance use type: does not use ROS Constitutional Constitutional: Denies chills, fever(s) or weight gain ENT HEENT: Denies headache(s), nasal congestion or nasal discharge Cardiovascular Cardiovascular: Denies chest pain or palpitations Respiratory/Chest Respiratory/Chest: Denies cough, excessive phlegm production or shortness of breath with exertion Gastrointestinal Gastrointestinal: Denies abdominal pain, nausea or vomiting Genitourinary Genitourinary: Denies dysuria Musculoskeletal Musculoskeletal: Reports joint pain and joint swelling Integumentary Integumentary: Denies rash or wounds Neurologic Neurologic: Denies focal weakness, numbness or tingling Psychiatric Psychiatric: Denies anxiety, auditory hallucinations, depression, homicidal ideation or suicidal ideation Vital Signs Vital Signs Vital Signs: 01/29/24 16:26 01/29/24 17:59 Temperature 98.3 F 98.3 F Temperature Source Temporal Temporal Pulse Rate 77 77 Respiratory Rate 16 16 Blood Pressure 179/74 H 179/74 H Blood Pressure Mean 109 109 Blood Pressure Source Monitor Monitor Blood Pressure Position Sitting Sitting Blood Pressure Location Left Arm Pulse Ox 98 98 Oxygen Delivery Method Room Air Room Air Weight Weight: 77.2 kg Body Mass Index (BMI) 28.3 Indicators for Scoring Admitted with or Primary Diagnosis of CVA/Stroke: No Hx of CVA/Stroke: No Modified [place] Score MRS Score at time of Evaluation: 3-Moderate disability Physical Exam Const alert General Appearance: cooperative HEENT normocephalic Eyes PERRL and EOMs intact bilaterally Neck supple, no JVD and no carotid bruits Resp normal respiratory effort, normal air movement and clear to auscultation bilaterally Cardio regular rate and regular rhythm GI normal to inspection, nondistended, normoactive bowel sounds, non-tender and non-distended Extremity normal capillary refill General Extremity: Negative for edema Skin no rashes or lesions noted General Skin Exam: no breakdown Psych affect normal Appearance: appropriate Assessment & Plan Assessment/Plan (1) Debility: (2) Status post total left knee replacement: (3) Osteoarthritis of left knee: (4) Premature ventricular contractions: (5) Hyperlipidemia: (6) Vitamin D deficiency: (7) Vitamin B12 deficiency: (8) Anxiety: PLAN: Plan 68 year old female with below past medical history underwent left total knee replacement 01/28/[address] Diane, admitted to with debility, here for 3 hours daily rehabilitation, strengthening, prior to discharge home alone. * Debility - PT/OT. * Pain - Tylenol 1000mg q8, Oxycodone 5-10mg q4 prn. * Bowel - senna/colace 2 tablets bid, Dulcolax 10mg pr x 1 prn, MOM 30ml po x 1 prn. * DVT prophylaxis - Eliquis 2.5mg bid thru 02/10/2024. * Hyperlipidemia - Atorvastatin 40mg qhs. * Vitamin D deficiency - D3 125mcg daily. * S. aureus nasal swab - Doxycycline 100mg bid thru 02/12/2024. * GERD - Famotidine 20mg daiy. * Anxiety - Lorazepam 0.5mg q12 prn.
[2024-01-29 21:00] VITALS: PULSE 77; RESP 16; O2SAT 98
[2024-01-29] MEDS: Senna/Docusate Sodium 1 Tablet 2 TABLET PO (21:27)
[2024-01-29] MEDS: Atorvastatin Calcium 40 MG Tablet PO (21:27)
[2024-01-29] MEDS: APIXABAN 2.5 MG TABLET (WCH) PO (21:27)
[2024-01-29] MEDS: Doxycycline 100 MG CAPSULE PO (21:27)
[2024-01-29] MEDS: Acetaminophen 500 MG Tablet 1000 MG PO (21:29)
[2024-01-30] MEDS: oxyCODONE 5 MG Tablet PO ×5 (02:23→20:31)
[2024-01-30 05:50] LABS: Hematocrit 35.3 % (37-47); Hemoglobin 11.7 g/dL (12.0-15.0); Mean Corp Hgb Conc 33.1 g/dL (32-36); Mean Corpuscular Hgb 33.8 pg (27.0-32.0); Mean Platelet Vol. 9.1 fl (6.2-12.0); Platelet Count 264 K/mm3 (150-450); RBC Distribution Width CV 11.8 % (11.6-14.6); RBC Distribution Width SD 43.8 fl (35.1-43.9); Red Blood Count 3.46 M/mm3 (4.2-5.4); White Blood Count 11.8 K/mm3 (4.4-11.0)
[2024-01-30 06:00] VITALS: BP 157/86; PULSE 86; RESP 18; TEMP 36.7; O2SAT 95; BMI 28.3
[2024-01-30] MEDS: Acetaminophen 500 MG Tablet 1000 MG PO ×3 (06:27→21:21)
[2024-01-30 06:29] LABS: AST(SGOT) 24 U/L (15-37); Alanine Aminotransfer ALT/SGPT 20 U/L (13-56); Albumin, Serum 3.1 g/dL (3.2-5.0); Alkaline Phosphatase 90 U/L (45-117); Anion Gap 4 (5-15); BUN 12 mg/dL (7-18); BUN/Creat Ratio 21.9 RATIO (10-20); Calcium,Total 9.2 mg/dL (8.5-10.1); Chloride 103 mmol/L (98-107); Creatinine, Serum 0.55 mg/dL (0.55-1.02); EST Glomerular Filtration Rate 117 mL/min (>60); Est Glom Filt Rate - Afr Amer 142 mL/min (>60); Estimated Creatinine Clearance 67.68 ml/min; Globulin 3.1 g/dL (2.2-4.2); Glucose 125 mg/dL (74-106); Magnesium 1.7 mg/dL (1.6-2.6); Phosphorus 3.4 mg/dL (2.5-4.9); Potassium 4.3 mmol/L (3.5-5.1); Protein, Total 6.2 g/dL (6.4-8.2); Sodium Level 137 mmol/L (136-145)
[2024-01-30] MEDS: 0.9% Saline Lock 10 ML Syringe IV ×2 (06:45→20:31)
--- NOTE | 2024-01-30 08:28 | PN.REHAB_ITS ---
Subjective Subjective Patient seen, examined. Left knee pain severe overnight, some nausea this morning, but today she will try to stay ahead of the pain by taking her oxycodone. Objective Data Objective Data Vital Signs: Vital Signs Temp Pulse Resp BP Pulse Ox O2 Del Method 98.0 F 86 18 157/86 H 95 Room Air 01/30/24 06:00 01/30/24 06:00 01/30/24 06:00 01/30/24 06:00 01/30/24 06:00 01/30/24 07:38 Oxygen Delivery Method Room Air Weight: 77.2 kg Body Mass Index (BMI) 28.3 Intake & Output: Intake and Output for Last 24 Hours 01/28/24 01/29/24 01/30/24 23:59 23:59 23:59 Intake Total 800 / 800 150 / 150 Output Total 600 / 600 700 / 700 Balance 200 / 200 -550 / -550 Lab / Micro Data 01/30/24 05:32 01/30/24 05:32 Labs: Laboratory Results - last 24 hr 01/30/24 05:32: WBC 11.8 H, RBC 3.46 L, Hgb 11.7 L, Hct 35.3 L, MCV 102.0 H, MCH 33.8 H, MCHC 33.1, RDW Std Deviation 43.8, RDW Coeff of Izabela 11.8, Plt Count 264, MPV 9.1, Sodium 137, Potassium 4.3, Chloride 103, Carbon Dioxide 30.0, Anion Gap 4 L, BUN 12, Creatinine 0.55, Estim Creat Clear Calc 67.68, Est GFR (MDRD) Af Amer 142, Est GFR (MDRD) Non-Af 117, BUN/Creatinine Ratio 21.9 H, Glucose 125 H, Calcium 9.2, Phosphorus 3.4, Magnesium 1.7, Total Bilirubin 0.50, AST 24, ALT 20, Alkaline Phosphatase 90, Total Protein 6.2 L, Albumin 3.1 L, Globulin 3.1, Albumin/Globulin Ratio 1.0 Indicators for Scoring Admitted with or Primary Diagnosis of CVA/Stroke: No Hx of CVA/Stroke: No Modified [place] Score MRS Score at time of Evaluation: 3-Moderate disability Physical Exam Const alert General Appearance: cooperative HEENT normocephalic Eyes PERRL and EOMs intact bilaterally Neck supple, no JVD and no carotid bruits Resp normal respiratory effort, normal air movement and clear to auscultation bilaterally Cardio regular rate and regular rhythm GI normal to inspection, nondistended, normoactive bowel sounds, non-tender and non-distended Extremity normal capillary refill General Extremity: Negative for edema Skin no rashes or lesions noted General Skin Exam: no breakdown Psych affect normal Appearance: appropriate Assessment & Plan Assessment/Plan (1) Debility: (2) Status post total left knee replacement: (3) Osteoarthritis of left knee: (4) Premature ventricular contractions: (5) Hyperlipidemia: (6) Vitamin D deficiency: (7) Vitamin B12 deficiency: (8) Anxiety: PLAN: Plan 68 year old female with below past medical history underwent left total knee replacement 01/28/[address] Diane, admitted to with debility, here for 3 hours daily rehabilitation, strengthening, prior to discharge home alone. * Debility - PT/OT. * Pain - Tylenol 1000mg q8, Oxycodone 5-10mg q4 prn. * Bowel - senna/colace 2 tablets bid, Dulcolax 10mg pr x 1 prn, MOM 30ml po x 1 prn. * DVT prophylaxis - Eliquis 2.5mg bid thru 02/10/2024. * Hyperlipidemia - Atorvastatin 40mg qhs. * Vitamin D deficiency - D3 125mcg daily. * S. aureus nasal swab - Doxycycline 100mg bid thru 02/12/2024. * GERD - Famotidine 20mg daiy. * Anxiety - Lorazepam 0.5mg q12 prn.
[2024-01-30] MEDS: Cholecalciferol (Vit D3) 125 MCG CAPSULE (5,000 UNITS) PO (09:32)
[2024-01-30] MEDS: Senna/Docusate Sodium 1 Tablet 2 TABLET PO ×2 (09:32→21:21)
[2024-01-30] MEDS: Famotidine 20 MG Tablet PO (09:32)
[2024-01-30] MEDS: APIXABAN 2.5 MG TABLET (WCH) PO (09:32)
[2024-01-30] MEDS: Doxycycline 100 MG CAPSULE PO ×2 (09:32→21:21)
[2024-01-30] MEDS: LORazepam 0.5 MG Tablet PO (10:30)
--- NOTE | 2024-01-30 15:08 | CASEMGMT ---
Social Work- Met with pt to complete initial assessment. Introduced self and role. (Pt known to this worker from previous floor). Verified/updated contacts. Pt?s goal is to return home at prior level of function, able to enjoy assisted and travel, as pt recently retired (10/27). Pt ex is a local support; pt family lives out of state. Pt has a small dog, Ovi Amador, that she lives with. Pt expressed concerns about the stairs in her home, but is unable to make her home more accessible. Pt reports she owns other properties and has been considering moving/building a more accessible residence, although she was unable to make any changes prior to surgery. SW will continue to follow for DC planning. BEATRIZ Buckner
--- NOTE | 2024-01-30 16:03 | PCM.RU.PYE ---
Admission Information Primary Diagnosis:: Left total knee replacement. Status Changes from Prescreening?: No changes Identified Actual Problem List:: Pain, ALteration in Cmfrt, Bowel, Constipation, Alteration in Sleep, Mobility Impaired, Ineffective Communication, Know.Dfct/Disease Process, Know.Dfct of Medicaitons and Alteration-Leisure Activ. Potential Problem List:: DVT, Bleeding, Infection, UTI, Aspiration, Falls, Skin Integrity and Depression Risk of Complications DVT: LMWH and AMRIT Hose Bleeding: Monitor Lab Values, Nursing to Teach Precautions for anti-coagulation therapy., Wound, if applicable, to be assessed every shift. and Stroke patients assessed for lethargy or change in status. Infection: Clinical Staff to Monitor for S/S of infection: and S/S of infection include fever, redness, warmth, etc. Urinary Tract Infection: Monitor for frequency, burning, discomfort, or incontinence. and Nursing will obtain urine sample for urinalysis and C&S when ordered. Aspiration: Clinical staff will monitor for coughing, drooling, congestion., Speech will evaluate swallowing and dsyphasia. and Nursing will monitor patient swallowing during meals. Falls: Patient will be evaluated for Fall Precautions and Patient will be placed on Fall Precautions as indicated per protocol. Skin Breakdown: Nursing will assess skin daily using assessment tool. and Nursing will place on Skin Breakdown Precautions as indicated. Pain: Clinical staff will assess patient's pain level per protocol., Medications will be given, if needed, and the pain level reassessed. and Other methods: Massage, distraction, decrease stimulus, etc. used PRN. Plan of Care Patient requires physician specializing in physical medicine and rehab oversight to provide close medical supervision of rehab issues including: Pain Management, Sleep Problems, Bowel and Bladder, Medical and co-morbidity Management, DVT prophylaxis, Rehabilitation Leadership and Coordination of treatment team Patient needs Physical Therapy: At least 5 out of 7 days and For a minimum of 1.5 hrs Patient needs Physical Therapy to improve:: Mobility, Strengthening, Transfers, Stretching, ROM, Endurance, Stairs, Gait and Balance Patient needs Occupational Therapy: At least 5 out of 7 days and For a minimum of 1.5 hrs Patient needs Occupational Therapy to improve ADL's incl.: Eating, Grooming, Bathing, Dressing, Toileting, Toilet transfers, Community Reintegration, Higher functioning activities, Household tasks, Adaptive Equipment, Splinting and Other activities as determined Patient requires 24/7 Rehabilitation Nursing for: Pain Issues, Identifying and preventing risk factors, Monitoring and reporting current medical conditions, Assisting with ambulation, transfer, and all ADL's, Teaching patients about disease process and medications, Family teaching, Providing safe environment, Bowel and Bladder Issues, Skin integrity and Medication Management Patient needs General Manager [employer]/ Case Management for: Discharge Planning, Arranging Home Equipment or Services and Family Interventions Patient needs Dietary and Nutrition Services for: Adequate Nutrition, Nutritional Supplements and Nutritional Education Goals Goals Patient will remain: free from falls and or injury at time of discharge. Patient will ambulate: with MOD I assist and with LRD Patient will complete upper body dressing at: MOD I level of assist. Patient will complete lower body dressing at: MOD I level of assist. Patient will complete toilet transfer at: MOD I level of assist. Patient will complete toileting at: MOD I level of assist. Patient will perform bathing at: MOD I level of assist. Patient will perform Tub/Shower transfer at: - (Sup.) Patient will complete grooming at: MOD I level of assist. Patient will complete home management skills at: MOD I level of assist. Patient will have pain level of: of 3 or less Patient's skin will: remain intact and free from infection. Patient will receive: adequate nutrition. Discharge Planning Pt Prognosis for Sig. Practical Improv. w/in Reasonable Time: Good Estimated Length of stay (days): 14 Anticipated D/C Destination: Home with Outpt Therapy Was Preadmission Assessment Accurate?: Yes
[2024-01-30] MEDS: Aspirin 81 MG TAB.CHEW PO (16:42)
[2024-01-30 18:00] VITALS: BP 145/79; PULSE 98; RESP 16; TEMP 36.6; O2SAT 97
[2024-01-30] MEDS: Atorvastatin Calcium 40 MG Tablet PO (21:21)
[2024-01-31] MEDS: oxyCODONE 5 MG Tablet PO ×4 (02:35→20:24)
[2024-01-31 06:14] VITALS: BP 147/85; PULSE 105; RESP 16; TEMP 36.9; O2SAT 94
[2024-01-31] MEDS: Acetaminophen 500 MG Tablet 1000 MG PO ×3 (06:16→21:35)
[2024-01-31] MEDS: Senna/Docusate Sodium 1 Tablet 2 TABLET PO ×2 (08:11→20:24)
[2024-01-31] MEDS: Aspirin 81 MG TAB.CHEW PO ×2 (08:11→16:08)
[2024-01-31] MEDS: Doxycycline 100 MG CAPSULE PO ×2 (08:11→20:24)
[2024-01-31] MEDS: Cholecalciferol (Vit D3) 125 MCG CAPSULE (5,000 UNITS) PO (08:11)
[2024-01-31] MEDS: Famotidine 20 MG Tablet PO (08:11)
--- NOTE | 2024-01-31 08:52 | CASEMGMT ---
Social Work IDT met with patient for Team meeting. Discussed patient's progress in PT/OT/SN. Educated to Medicare benefit. Once days are given, this worker will update pt. Pt reports very painful, and Team observed pt being very anxious. increased PRN medication. Pt states she is feeling better with seeing the progress each day and having the assistance and encouragement from staff. SW will continue to follow to assist with DC planning. Will ReTeam weekly. KENNEDY DislaW
--- NOTE | 2024-01-31 16:06 | PN.REHAB_ITS ---
Subjective Subjective Patient seen, examined. Her pain is better controlled with pain medications, she slept better last night, seen on Team rounds, she is appreciative of her care. Objective Data Objective Data Vital Signs: Vital Signs Temp Pulse Resp BP Pulse Ox O2 Del Method 98.4 F 105 H 16 147/85 H 94 Room Air 01/31/24 06:14 01/31/24 06:14 01/31/24 06:14 01/31/24 06:14 01/31/24 06:14 01/31/24 16:04 Oxygen Delivery Method Room Air Weight: 77.2 kg Body Mass Index (BMI) 28.3 Intake & Output: Intake and Output for Last 24 Hours 01/29/24 01/30/24 01/31/24 23:59 23:59 23:59 Intake Total 800 / 800 1600 / 1600 1440 / 1440 Output Total 600 / 600 2800 / 3050 1100 / 1100 Balance 200 / 200 -1200 / -1450 340 / 340 Lab / Micro Data 01/30/24 05:32 01/30/24 05:32 Indicators for Scoring Admitted with or Primary Diagnosis of CVA/Stroke: No Hx of CVA/Stroke: No Modified [place] Score MRS Score at time of Evaluation: 3-Moderate disability Physical Exam Const alert General Appearance: cooperative HEENT normocephalic Eyes PERRL and EOMs intact bilaterally Neck supple, no JVD and no carotid bruits Resp normal respiratory effort, normal air movement and clear to auscultation bilaterally Cardio regular rate and regular rhythm GI normal to inspection, nondistended, normoactive bowel sounds, non-tender and non-distended Extremity normal capillary refill General Extremity: Negative for edema Skin no rashes or lesions noted General Skin Exam: no breakdown Psych affect normal Appearance: appropriate Assessment & Plan Assessment/Plan (1) Debility: (2) Status post total left knee replacement: (3) Osteoarthritis of left knee: (4) Premature ventricular contractions: (5) Hyperlipidemia: (6) Vitamin D deficiency: (7) Vitamin B12 deficiency: (8) Anxiety: PLAN: Plan 68 year old female with below past medical history underwent left total knee replacement 01/28/[address] Diane, admitted to with debility, here for 3 hours daily rehabilitation, strengthening, prior to discharge home alone. * Debility - PT/OT. * Pain - Tylenol 1000mg q8, Oxycodone 5-10mg q4 prn. * Bowel - senna/colace 2 tablets bid, Dulcolax 10mg pr x 1 prn, MOM 30ml po x 1 prn. * DVT prophylaxis - Eliquis 2.5mg bid thru 02/10/2024. * Hyperlipidemia - Atorvastatin 40mg qhs. * Vitamin D deficiency - D3 125mcg daily. * S. aureus nasal swab - Doxycycline 100mg bid thru 02/12/2024. * GERD - Famotidine 20mg daiy. * Anxiety - Lorazepam 0.5mg q4h prn.
[2024-01-31 17:17] VITALS: BP 148/85; PULSE 111; RESP 16; TEMP 37.2; O2SAT 97
[2024-01-31] MEDS: Atorvastatin Calcium 40 MG Tablet PO (20:24)
[2024-02-01] MEDS: oxyCODONE 5 MG Tablet PO ×5 (00:24→21:33)
[2024-02-01 06:00] VITALS: BP 134/75; PULSE 71; RESP 16; TEMP 35.6; O2SAT 96
[2024-02-01] MEDS: Acetaminophen 500 MG Tablet 1000 MG PO ×3 (06:10→21:35)
[2024-02-01] MEDS: 0.9% Saline Lock 10 ML Syringe IV (06:11)
[2024-02-01] MEDS: Famotidine 20 MG Tablet PO (08:19)
[2024-02-01] MEDS: Cholecalciferol (Vit D3) 125 MCG CAPSULE (5,000 UNITS) PO (08:19)
[2024-02-01] MEDS: Senna/Docusate Sodium 1 Tablet 2 TABLET PO ×2 (08:19→21:35)
[2024-02-01] MEDS: Aspirin 81 MG TAB.CHEW PO ×2 (08:19→17:30)
[2024-02-01] MEDS: Doxycycline 100 MG CAPSULE PO ×2 (08:19→21:35)
[2024-02-01] MEDS: Magnesium Hydroxide 30 ML UDC PO (14:50)
[2024-02-01 17:57] VITALS: BP 164/88; PULSE 73; RESP 17; TEMP 36.4; O2SAT 97
[2024-02-01] MEDS: Atorvastatin Calcium 40 MG Tablet PO (21:35)
[2024-02-01 22:00] VITALS: PULSE 73; RESP 17; O2SAT 97
[2024-02-02] MEDS: Acetaminophen 500 MG Tablet 1000 MG PO ×3 (05:01→21:37)
[2024-02-02 05:05] VITALS: BP 152/86; PULSE 87; RESP 16; TEMP 36.5
[2024-02-02 07:01] VITALS: O2SAT 96
[2024-02-02] MEDS: Aspirin 81 MG TAB.CHEW PO ×2 (07:59→17:46)
[2024-02-02] MEDS: oxyCODONE 5 MG Tablet PO ×3 (07:59→21:37)
[2024-02-02] MEDS: Famotidine 20 MG Tablet PO (08:00)
[2024-02-02] MEDS: Doxycycline 100 MG CAPSULE PO ×2 (08:00→21:37)
[2024-02-02] MEDS: Cholecalciferol (Vit D3) 125 MCG CAPSULE (5,000 UNITS) PO (08:00)
[2024-02-02] MEDS: Senna/Docusate Sodium 1 Tablet 2 TABLET PO ×2 (08:03→21:38)
[2024-02-02 18:00] VITALS: BP 148/74; PULSE 81; RESP 16; TEMP 37.1; O2SAT 97
[2024-02-02 21:05] VITALS: PULSE 81; RESP 16; O2SAT 97
[2024-02-02] MEDS: Atorvastatin Calcium 40 MG Tablet PO (21:38)
[2024-02-03] MEDS: oxyCODONE 5 MG Tablet PO ×3 (05:34→21:06)
[2024-02-03] MEDS: Acetaminophen 500 MG Tablet 1000 MG PO ×3 (05:35→21:09)
[2024-02-03 06:00] VITALS: BP 160/84; PULSE 92; RESP 16; TEMP 36.4; O2SAT 95
[2024-02-03] MEDS: Senna/Docusate Sodium 1 Tablet 2 TABLET PO ×2 (07:59→21:08)
[2024-02-03] MEDS: Famotidine 20 MG Tablet PO (07:59)
[2024-02-03] MEDS: Doxycycline 100 MG CAPSULE PO ×2 (07:59→21:08)
[2024-02-03] MEDS: Aspirin 81 MG TAB.CHEW PO ×2 (07:59→17:20)
[2024-02-03] MEDS: Cholecalciferol (Vit D3) 125 MCG CAPSULE (5,000 UNITS) PO (07:59)
[2024-02-03 18:00] VITALS: BP 125/65; PULSE 80; RESP 16; TEMP 36.7; O2SAT 98
[2024-02-03] MEDS: Atorvastatin Calcium 40 MG Tablet PO (21:09)
[2024-02-03 22:00] VITALS: PULSE 80; RESP 16; O2SAT 98
[2024-02-04 05:33] VITALS: BP 148/82; PULSE 87; RESP 16; TEMP 36.5; O2SAT 94
[2024-02-04] MEDS: Acetaminophen 500 MG Tablet 1000 MG PO ×3 (05:38→20:49)
[2024-02-04] MEDS: Aspirin 81 MG TAB.CHEW PO ×2 (07:53→16:58)
[2024-02-04] MEDS: Doxycycline 100 MG CAPSULE PO ×2 (07:53→20:50)
[2024-02-04] MEDS: Senna/Docusate Sodium 1 Tablet 2 TABLET PO ×2 (07:53→20:56)
[2024-02-04] MEDS: Cholecalciferol (Vit D3) 125 MCG CAPSULE (5,000 UNITS) PO (07:53)
[2024-02-04] MEDS: oxyCODONE 5 MG Tablet PO ×4 (07:53→20:56)
[2024-02-04] MEDS: Famotidine 20 MG Tablet PO (07:53)
--- NOTE | 2024-02-04 10:33 | CASEMGMT ---
Social Work SW spoke with pt at bedside to update her on Medicare approval of 10 days with DC 02/07. Pt agreed and has son flying in town to stay with her. IDT recommending OP PT. Pt agreeable and requesting [facility]. Pt has FWW at home. Son to transport at [place]. SW faxed referral to [facility]. Plan: DC home alone 02/07, [facility] Lelo Gandara, [employer]
[2024-02-04 18:00] VITALS: BP 151/86; PULSE 76; RESP 16; TEMP 36.9; O2SAT 97
--- NOTE | 2024-02-04 20:32 | PN.REHAB_ITS ---
Subjective Subjective Patient seen, examined. Her pain control is much improved, she feels she turned the corner on pain over the weekend. She has no new problems, concerns, issues, complaints. Objective Data Objective Data Vital Signs: Vital Signs Temp Pulse Resp BP Pulse Ox O2 Del Method 98.4 F 76 16 151/86 H 97 Room Air 02/04/24 18:00 02/04/24 18:00 02/04/24 18:00 02/04/24 18:00 02/04/24 18:00 02/04/24 18:00 Oxygen Delivery Method Room Air Weight: 77.2 kg Body Mass Index (BMI) 28.3 Intake & Output: Intake and Output for Last 24 Hours 02/02/24 02/03/24 02/04/24 23:59 23:59 23:59 Intake Total 1980 / 2180 2110 / 2410 1770 / 1770 Output Total 1000 / 1400 850 / 1230 1460 / 1460 Balance 980 / 780 1260 / 1180 310 / 310 Lab / Micro Data 01/30/24 05:32 01/30/24 05:32 Indicators for Scoring Admitted with or Primary Diagnosis of CVA/Stroke: No Hx of CVA/Stroke: No Modified [place] Score MRS Score at time of Evaluation: 3-Moderate disability Physical Exam Const alert General Appearance: cooperative HEENT normocephalic Eyes PERRL and EOMs intact bilaterally Neck supple, no JVD and no carotid bruits Resp normal respiratory effort, normal air movement and clear to auscultation bilaterally Cardio regular rate and regular rhythm GI normal to inspection, nondistended, normoactive bowel sounds, non-tender and non-distended Extremity normal capillary refill General Extremity: Negative for edema Skin no rashes or lesions noted General Skin Exam: no breakdown Psych affect normal Appearance: appropriate Assessment & Plan Assessment/Plan (1) Debility: (2) Status post total left knee replacement: (3) Osteoarthritis of left knee: (4) Premature ventricular contractions: (5) Hyperlipidemia: (6) Vitamin D deficiency: (7) Vitamin B12 deficiency: (8) Anxiety: PLAN: Plan 68 year old female with below past medical history underwent left total knee replacement 01/28/[address] Diane, admitted to with debility, here for 3 hours daily rehabilitation, strengthening, prior to discharge home alone. * Debility - PT/OT. * Pain - Tylenol 1000mg q8, Oxycodone 5-10mg q4 prn. * Bowel - senna/colace 2 tablets bid, Dulcolax 10mg pr x 1 prn, MOM 30ml po x 1 prn. * DVT prophylaxis - Eliquis 2.5mg bid thru 02/10/2024. * Hyperlipidemia - Atorvastatin 40mg qhs. * Vitamin D deficiency - D3 125mcg daily. * S. aureus nasal swab - Doxycycline 100mg bid thru 02/12/2024. * GERD - Famotidine 20mg daiy. * Anxiety - Lorazepam 0.5mg q4h prn.
[2024-02-04] MEDS: Atorvastatin Calcium 40 MG Tablet PO (20:50)
[2024-02-05 06:00] VITALS: BP 146/75; PULSE 89; RESP 16; TEMP 36.6; O2SAT 94
[2024-02-05] MEDS: Acetaminophen 500 MG Tablet 1000 MG PO ×3 (06:50→20:42)
--- NOTE | 2024-02-05 08:08 | PN.REHAB_ITS ---
Subjective Subjective Patient seen, examined. She strained left lateral thigh yesterday in therapy, but it is not severe, improving. Looking forward to discharge. Objective Data Objective Data Vital Signs: Vital Signs Temp Pulse Resp BP Pulse Ox O2 Del Method 97.9 F 89 16 146/75 H 94 Room Air 02/05/24 06:00 02/05/24 06:00 02/05/24 06:00 02/05/24 06:00 02/05/24 06:00 02/05/24 06:00 Oxygen Delivery Method Room Air Weight: 77.2 kg Body Mass Index (BMI) 28.3 Intake & Output: Intake and Output for Last 24 Hours 02/03/24 02/04/24 02/05/24 23:59 23:59 23:59 Intake Total 2110 / 2410 1770 / 1770 300 / 300 Output Total 850 / 1230 1460 / 1460 250 / 250 Balance 1260 / 1180 310 / 310 50 / 50 Lab / Micro Data 01/30/24 05:32 01/30/24 05:32 Indicators for Scoring Admitted with or Primary Diagnosis of CVA/Stroke: No Hx of CVA/Stroke: No Modified [place] Score MRS Score at time of Evaluation: 3-Moderate disability Physical Exam Const alert General Appearance: cooperative HEENT normocephalic Eyes PERRL and EOMs intact bilaterally Neck supple, no JVD and no carotid bruits Resp normal respiratory effort, normal air movement and clear to auscultation bilaterally Cardio regular rate and regular rhythm GI normal to inspection, nondistended, normoactive bowel sounds, non-tender and non-distended Extremity normal capillary refill General Extremity: Negative for edema Skin no rashes or lesions noted General Skin Exam: no breakdown Psych affect normal Appearance: appropriate Assessment & Plan Assessment/Plan (1) Debility: (2) Status post total left knee replacement: (3) Osteoarthritis of left knee: (4) Premature ventricular contractions: (5) Hyperlipidemia: (6) Vitamin D deficiency: (7) Vitamin B12 deficiency: (8) Anxiety: PLAN: Plan 68 year old female with below past medical history underwent left total knee replacement 01/28/[address] Diane, admitted to with debility, here for 3 hours daily rehabilitation, strengthening, prior to discharge home alone. * Debility - PT/OT. * Pain - Tylenol 1000mg q8, Oxycodone 5-10mg q4 prn. * Bowel - senna/colace 2 tablets bid, Dulcolax 10mg pr x 1 prn, MOM 30ml po x 1 prn. * DVT prophylaxis - Eliquis 2.5mg bid thru 02/10/2024. * Hyperlipidemia - Atorvastatin 40mg qhs. * Vitamin D deficiency - D3 125mcg daily. * S. aureus nasal swab - Doxycycline 100mg bid thru 02/12/2024. * GERD - Famotidine 20mg daiy. * Anxiety - Lorazepam 0.5mg q4h prn.
[2024-02-05] MEDS: Aspirin 81 MG TAB.CHEW PO ×2 (08:12→17:28)
[2024-02-05] MEDS: oxyCODONE 5 MG Tablet PO ×3 (08:12→17:31)
[2024-02-05] MEDS: Doxycycline 100 MG CAPSULE PO ×2 (08:12→20:42)
[2024-02-05] MEDS: Famotidine 20 MG Tablet PO (08:13)
[2024-02-05] MEDS: Senna/Docusate Sodium 1 Tablet 2 TABLET PO ×2 (08:13→20:43)
[2024-02-05] MEDS: Cholecalciferol (Vit D3) 125 MCG CAPSULE (5,000 UNITS) PO (08:13)
[2024-02-05 18:00] VITALS: BP 133/73; PULSE 77; RESP 16; TEMP 36.7; O2SAT 98
[2024-02-05] MEDS: Atorvastatin Calcium 40 MG Tablet PO (20:42)
[2024-02-06] MEDS: oxyCODONE 5 MG Tablet PO ×3 (01:55→21:02)
[2024-02-06] MEDS: Acetaminophen 500 MG Tablet 1000 MG PO ×3 (05:21→21:03)
[2024-02-06 06:00] VITALS: BP 147/84; PULSE 79; RESP 17; TEMP 35.5; O2SAT 98; BMI 28.3
[2024-02-06] MEDS: Cholecalciferol (Vit D3) 125 MCG CAPSULE (5,000 UNITS) PO (08:15)
[2024-02-06] MEDS: Famotidine 20 MG Tablet PO (08:15)
[2024-02-06] MEDS: Doxycycline 100 MG CAPSULE PO ×2 (08:15→21:02)
[2024-02-06] MEDS: Aspirin 81 MG TAB.CHEW PO ×2 (08:15→17:42)
[2024-02-06] MEDS: Senna/Docusate Sodium 1 Tablet 2 TABLET PO ×2 (08:16→21:03)
--- NOTE | 2024-02-06 08:24 | PN.REHAB_ITS ---
Subjective Subjective Patient seen, examined. Bandage removed, she was able to shower today. Pain controlled, no new complaints. Objective Data Objective Data Vital Signs: Vital Signs Temp Pulse Resp BP Pulse Ox O2 Del Method 96 F L 79 17 147/84 H 98 Room Air 02/06/24 06:00 02/06/24 06:00 02/06/24 06:00 02/06/24 06:00 02/06/24 06:00 02/06/24 06:00 Oxygen Delivery Method Room Air Weight: 77 kg Body Mass Index (BMI) 28.3 Intake & Output: Intake and Output for Last 24 Hours 02/04/24 02/05/24 02/06/24 23:59 23:59 23:59 Intake Total 1770 / 1770 1940 / 1940 100 / 100 Output Total 1460 / 1460 250 / 250 Balance 310 / 310 1690 / 1690 100 / 100 Lab / Micro Data 01/30/24 05:32 01/30/24 05:32 Indicators for Scoring Admitted with or Primary Diagnosis of CVA/Stroke: No Hx of CVA/Stroke: No Modified [place] Score MRS Score at time of Evaluation: 3-Moderate disability Physical Exam Const alert General Appearance: cooperative HEENT normocephalic Eyes PERRL and EOMs intact bilaterally Neck supple, no JVD and no carotid bruits Resp normal respiratory effort, normal air movement and clear to auscultation bilaterally Cardio regular rate and regular rhythm GI normal to inspection, nondistended, normoactive bowel sounds, non-tender and non-distended Extremity normal capillary refill General Extremity: Negative for edema Skin no rashes or lesions noted General Skin Exam: no breakdown Psych affect normal Appearance: appropriate Assessment & Plan Assessment/Plan (1) Debility: (2) Status post total left knee replacement: (3) Osteoarthritis of left knee: (4) Premature ventricular contractions: (5) Hyperlipidemia: (6) Vitamin D deficiency: (7) Vitamin B12 deficiency: (8) Anxiety: PLAN: Plan 68 year old female with below past medical history underwent left total knee replacement 01/28/[address] Diane, admitted to with debility, here for 3 hours daily rehabilitation, strengthening, prior to discharge home alone. * Debility - PT/OT. * Pain - Tylenol 1000mg q8, Oxycodone 5-10mg q4 prn. * Bowel - senna/colace 2 tablets bid, Dulcolax 10mg pr x 1 prn, MOM 30ml po x 1 prn. * DVT prophylaxis - Eliquis 2.5mg bid thru 02/10/2024. * Hyperlipidemia - Atorvastatin 40mg qhs. * Vitamin D deficiency - D3 125mcg daily. * S. aureus nasal swab - Doxycycline 100mg bid thru 02/12/2024. * GERD - Famotidine 20mg daiy. * Anxiety - Lorazepam 0.5mg q4h prn.
[2024-02-06 17:56] VITALS: BP 153/84; PULSE 82; RESP 16; TEMP 37.1; O2SAT 92
[2024-02-06] MEDS: Atorvastatin Calcium 40 MG Tablet PO (21:02)
[2024-02-07 06:00] VITALS: BP 148/80; PULSE 87; RESP 16; TEMP 35.7; O2SAT 96
[2024-02-07] MEDS: Acetaminophen 500 MG Tablet 1000 MG PO ×3 (06:11→21:32)
[2024-02-07] MEDS: oxyCODONE 5 MG Tablet PO ×2 (06:20→15:16)
--- NOTE | 2024-02-07 08:24 | CASEMGMT ---
Social Work IDT met with patient for Team meeting. Discussed patient's progress in PT/OT/SN. Medicare approved 10 days with DC 02/07. Confirmed DC home with [facility]. No DME needs. No other concerns noted. Lelo Gandara MSW [employer]ITION [employer]ER
[2024-02-07] MEDS: Aspirin 81 MG TAB.CHEW PO ×2 (08:52→17:40)
[2024-02-07] MEDS: Doxycycline 100 MG CAPSULE PO ×2 (08:53→21:31)
[2024-02-07] MEDS: Senna/Docusate Sodium 1 Tablet 2 TABLET PO ×2 (08:53→21:31)
[2024-02-07] MEDS: Famotidine 20 MG Tablet PO (08:53)
[2024-02-07] MEDS: Cholecalciferol (Vit D3) 125 MCG CAPSULE (5,000 UNITS) PO (08:53)
--- NOTE | 2024-02-07 13:52 | EX.DISCHREH ---
Providers Date of Admission: 01/29/24 Primary Care Physician: Dr. Shaenll Vera DO Reason For Visit: L KNEE REPLACEMENT Diagnosis Discharge Diagnosis (1) Debility: Status: Acute Code(s): R53.81 - Other malaise (2) Status post total left knee replacement: Status: Acute Code(s): Z96.652 - Presence of left artificial knee joint (3) Osteoarthritis of left knee: Status: Acute Code(s): M17.12 - Unilateral primary osteoarthritis, left knee (4) Premature ventricular contractions: Status: Acute Code(s): I49.3 - Ventricular premature depolarization (5) Hyperlipidemia: Status: Acute Code(s): E78.5 - Hyperlipidemia, unspecified (6) Vitamin D deficiency: Status: Acute Code(s): E55.9 - Vitamin D deficiency, unspecified (7) Vitamin B12 deficiency: Status: Acute Code(s): E53.8 - Deficiency of other specified B group vitamins (8) Anxiety: Status: Acute Code(s): F41.9 - Anxiety disorder, unspecified Plan 68 year old female with below past medical history underwent left total knee replacement 01/28/[address] Diane, admitted to with debility, here for 3 hours daily rehabilitation, strengthening, prior to discharge home alone. Debility - PT/OT. Pain - Tylenol 1000mg q8, Oxycodone 5-10mg q4 prn. Bowel - senna/colace 2 tablets bid, Dulcolax 10mg pr x 1 prn, MOM 30ml po x 1 prn. DVT prophylaxis - Eliquis 2.5mg bid thru 02/10/2024. Hyperlipidemia - Atorvastatin 40mg qhs. Vitamin D deficiency - D3 125mcg daily. S. aureus nasal swab - Doxycycline 100mg bid thru 02/12/2024. GERD - Famotidine 20mg daiy. Anxiety - Lorazepam 0.5mg q4h prn. Medications at Discharge Home Medications atorvastatin 40 mg tablet 40 mg PO QHS cholesterol 01/17/24 cholecalciferol (vitamin D3) 125 mcg (5,000 unit) tablet (Vitamin D3) 125 mcg PO DAILY vitamin 01/17/24 lorazepam 0.5 mg tablet (Ativan) 0.5 mg PO Q12H PRN anxiety 01/17/24 acetaminophen 500 mg tablet 1,000 mg (2 x 500 mg) PO Q8 pain #0 tabs 01/29/24 cyanocobalamin (vitamin B-12) 500 mcg tablet 3,000 mcg (6 x 500 mcg) PO DAILY vitamin #0 tabs 01/29/24 famotidine 20 mg tablet 20 mg PO DAILY stomach #0 tabs 01/29/24 doxycycline monohydrate 100 mg capsule 100 mg PO BID 4 days #8 caps 02/07/24 oxycodone 5 mg tablet 5 - 10 mg (1 - 2 x 5 mg) PO Q4H PRN PRN Pain Score 1-10 7 days #84 tabs 02/07/24 sennosides 8.6 mg-docusate sodium 50 mg tablet (Stimulant Laxative Plus) 2 tab PO BID 30 days #120 tabs 02/07/24 Hospital Course Operations total knee replacement (Left.) Procedures None Summary of Care Provided Minutes Spent on Discharge: 35 Hospital Course: 68 year old female with below past medical history underwent left total knee replacement 01/28/[address] Diane, admitted to with debility, here for 3 hours daily rehabilitation, strengthening, prior to discharge home alone. Discharge home alone 02/08/2024, [facility] PT. Physical Exam Const alert General Appearance: cooperative HEENT normocephalic Eyes PERRL and EOMs intact bilaterally Neck supple, no JVD and no carotid bruits Resp normal respiratory effort, normal air movement and clear to auscultation bilaterally Cardio regular rate and regular rhythm GI normal to inspection, nondistended, normoactive bowel sounds, non-tender and non-distended Extremity normal capillary refill General Extremity: Negative for edema Skin no rashes or lesions noted General Skin Exam: no breakdown Psych affect normal Appearance: appropriate Weight / BMI Weight Weight: 77 kg Body Mass Index (BMI) 28.3 ABG / Lab / Microbiology Data 01/30/24 05:32 01/30/24 05:32 Indicators for Scoring Admitted with or Primary Diagnosis of CVA/Stroke: No Hx of CVA/Stroke: No Modified [place] Score MRS Score at time of Evaluation: 3-Moderate disability D/C Instructions Discharge Diet: No restrictions Discharge Activity: Return to Normal Activity, May Shower and Use Walker Weight Bearing Status: Weight bearing as tolerated Call your doctor if you observe: Fever of 101 or Higher, Inability to urinate, Inability to have a bowel movement, Shortness of breath, Dizziness, Fainting spells, Swelling in the ankles, Chest pain and Uncontrolled pain Additional Instructions: Discharge home alone 02/08/2024, [facility] PT. Meaningful Use Info Meaningful Use Meaningful Use Diagnoses (Choose all that apply): None applicable Ischemic Stroke Statin Dosing Therapy Reference: STATIN DOSE THERAPY REFERENCE: * Patients > 75 years receive moderate or high dose statin therapy. * Patients 75 years or YOUNGER should receive HIGH intensity statin dose unless contraindicated. You will be required to document reason for non-treatment if statin daily dose does not meet guidelines. HIGH DOSE STATIN THERAPY DAILY Atorvastatin > than or = to 40 mg Rosuvastatin > than or = to 20 mg Amlodipine + Atorvastatin > than or = to 2.5/40 mg Ezetimibe + Simvastatin 10/80 mg Simvastatin 80mg Discharge Plan Admission Admit Date/Time: 01/29/24 15:58 Primary Reason for Your Visit: Debility. Attending Provider: Andres Donis Chi Primary Care Provider: Shanell Vera Instructions Additional Instructions / Restrictions: Discharge home alone 02/08/2024, [facility] PT. Discharge Orders/Prescriptions Prescriptions: New sennosides-docusate sodium [Stimulant Laxative Plus] 8.6-50 mg Tablet 2 tab PO BID 30 Days Qty: 120 0RF doxycycline monohydrate 100 mg Capsule 100 mg PO BID 4 Days Qty: 8 0RF oxycodone 5 mg Tablet 5 - 10 mg PO Q4H PRN PRN (Reason: Pain Score 1-10) 7 Days Qty: 84 0RF Continued atorvastatin 40 mg tablet 40 mg PO QHS cholecalciferol (vitamin D3) [Vitamin D3] 125 mcg (5,000 unit) tablet 125 mcg PO DAILY lorazepam [Ativan] 0.5 mg tablet 0.5 mg PO Q12H PRN (Reason: anxiety) acetaminophen 500 mg Tablet 1,000 mg PO Q8 Qty: 0 0RF famotidine 20 mg Tablet 20 mg PO DAILY Qty: 0 0RF cyanocobalamin (vitamin B-12) 500 mcg Tablet 3,000 mcg PO DAILY Qty: 0 0RF Discontinued sennosides-docusate sodium [Stimulant Laxative Plus] 8.6-50 mg Tablet 2 tab PO BID Qty: 0 0RF doxycycline monohydrate 100 mg Capsule 100 mg PO BID Qty: 28 0RF Rx Instructions: administer for 14 days, then stop oxycodone 5 mg Tablet 5 - 10 mg PO Q4H PRN PRN (Reason: Pain Score 4-10) Qty: 0 0RF Eliquis 2.5 mg tablet 2.5 mg PO BID Qty: 24 0RF Rx Instructions: administer for twelve days starting tonite Referrals / Follow Up: Shanell Vera DO [Primary Care Provider] - 02/13/24 11:00 am Evin Diane MD [Med Staff - Active Staff] - 02/11/24 1:15 pm (f/u appt Inna ANGELES ) Disposition Disposition (needs filled in before D/C Order can be placed): Home, Self Care
[2024-02-07 18:00] VITALS: BP 139/78; PULSE 99; RESP 18; TEMP 36.6; O2SAT 98
[2024-02-07 21:00] VITALS: PULSE 99; RESP 16; O2SAT 97
[2024-02-07] MEDS: Atorvastatin Calcium 40 MG Tablet PO (21:31)
[2024-02-08 06:00] VITALS: BP 146/84; PULSE 86; RESP 16; TEMP 36.4; O2SAT 95
[2024-02-08] MEDS: Acetaminophen 500 MG Tablet 1000 MG PO (06:52)
[2024-02-08] MEDS: Aspirin 81 MG TAB.CHEW PO (09:00)
[2024-02-08] MEDS: Famotidine 20 MG Tablet PO (09:00)
[2024-02-08] MEDS: Cholecalciferol (Vit D3) 125 MCG CAPSULE (5,000 UNITS) PO (09:00)
[2024-02-08] MEDS: Doxycycline 100 MG CAPSULE PO (09:00)
[2024-02-08] MEDS: oxyCODONE 5 MG Tablet PO (10:30)
--- NOTE | 2024-02-08 10:55 | NURSING ---
Discharge instructions given and patient verbalized understanding.
== END 2024-02-08 10:55 | disposition home or self-care (01) | DRG 470 ==
PROVIDERS: Admitting Provider Family Medicine Geriatric Medicine; PCP Internal Medicine; Visit Provider Family Medicine Geriatric Medicine
DX: Z47.1 Aftercare following joint replacement surgery (principal); E53.8 Deficiency of other specified B group vitamins; E55.9 Vitamin D deficiency, unspecified; E78.00 Pure hypercholesterolemia, unspecified; F41.9 Anxiety disorder, unspecified; K21.9 Gastro-esophageal reflux disease without esophagitis; M17.0 Bilateral primary osteoarthritis of knee; Z96.652 Presence of left artificial knee joint; I49.3 Ventricular premature depolarization; Z79.899 Other long term (current) drug therapy; T38.0X5D Adverse effect of glucocorticoids and synthetic analogues, subsequent encounter; R73.9 Hyperglycemia, unspecified
CPT/HCPCS: 36415; 73560; 80048; 80053; 82040; 82962; 83735; 84100; 85025; 85027; 87077; 87081; 88305; 88311; 94668; 96365; 96366; 97110; 97116; 97162; 97166; 97530; 97535; 99221; 99252; C1776; J7050; J7120; A4216; G0378; G0463; J3475

== ENCOUNTER 2024-04-24 12:30 | Outpatient (RCR) | payer MEDICARE, BC, SELFPAY ==
--- NOTE | 2024-02-14 11:30 | HP.PTEVAL_ITS ---
Patient's Visit Information Visit Information Visit Information: DAVION URIOSTEGUI is a 68 year old F referred to Physical Therapy by Dr. Andres Donis MD with a diagnosis of L TKA 01/28/24. Date of Evaluation: 02/13/24 Physical Therapist: Kalin Cormier, PT, ATC Visit Plan Frequency: 2-3x /Week Duration: 4-6 Weeks Plan: A/P joint mobs, manual knee flex/ext stretching, L knee strengthening and flexibility, balance and proprio, nustep, HEP, core strengthening Subjective Subjective: Pt reports she had a L TKA 01/28/24; stated she was on the rehab floo r from 01/29-02/07. States she has difficulties with ascending/descending stairs. Pt reports she lives in a 2-story home and has 13 steps going upstairs to get to her bathroom and bedroom; states she also has steps to get to basement to do laundry. States she uses a 2-step pattern and holds onto a handrail when negotiating stairs. Pt reports using a cane when ambulating community distances, doesn't use it around the house. States she would like to ambulate for long periods of time, negotiating stairs without holding the handrail, and hiking. Pt reports no numbness or tingling. States icing and elevating her L LE helps to alleviate. Pt reports difficulties with getting comfortable when sleeping secondary to pain. States her pain is a 4/10 at rest and is a 7/10 at its worst. Pain L TKA: Pain Intensity (Out of 10): 4 Pain Intensity Range: 7 Objective Objective: NEURO: sensation WNL bilat to light touch ROM: R knee flex= 132 deg, ext= 5 deg; L knee flex= 99 deg, ext= 10 deg MMT: R knee flex= 31, ext= 25; L knee flex= 9, ext= 25 #F TU.39 sec Balance/Special Test Scores WOMAC Total Score: 43 WOMAC Percentatge: 55.2100 Goals Goal 1:: Pt will decrease pain by 50% to aid with sleep. Goal Time Frame: 4-6 Weeks Goal 2:: Pt will be I with a HEP. Goal Time Frame: 4-6 Weeks Goal 3:: Pt will increase L knee ext strength to within 90% of R knee to aid with ambulating community distances. Goal Time Frame: 4-6 Weeks Goal 4:: Pt will increase L knee ROM to within 90% of R knee to aid with negotiating stairs. Goal Time Frame: 4-6 Weeks Rehabilitation Potential Physical Therapy Diagnosis: Decreased L knee strength and ROM Rehabilitation Potential: Good Anticipated Interventions Patient/Client Instruction: Educate patient on: Plan of Care Therapeutic Exercise to Include: Strength training, Balance training, Body mechanics, Passive ROM and Dynamic Lumbar Stabilization For the Purpose of:: To decrease pain, To increase ROM, To improve muscle performance and motor function and To increase tolerance to activity/condition/position Text: Thank you for the opportunity to evaluate your patient. For Medicare and Medicare HMO plans, please review the plan of care and approve it. It will need to be FAXED BACK to us at [phone] for Medicare purposes. For Medicare only, by signing this I certify the plan of care. Please let me know if there are questions or concerns regarding this plan of care. Physician Signature: Date:
--- NOTE | 2024-02-29 13:31 | HP.PTREVAL ---
Re-Evaluation Intro: Dr. Andres Donis MD, It has been my pleasure to treat DAVION URIOSTEGUI over the last 7 visits for L TKA 01/28/24. Please see the progress note below for an update on the physical therapy plan of care! Subjective Subjective: My knee still hurts a lot when I walk a lot. My knee was really sore this morning Objective Objective/Function: L knee pain ranges 0-6/10 L knee ROM 0-7-105 degrees L knee MMT: flex= 15, ext= 20 #F Pt is showing progress, but still lacks functional ROM and strength At this time Plan Plan Plan: 02/29/24- focus on core strengthening and L knee ROM Balance/Gait/Functional tests Balance/Special Test Scores Lower Extremity Functional Score: 40 WOMAC Total Score: 43 WOMAC Percentage: 55.2100 Goals Goals Goal 1:: Pt will decrease pain by 50% to aid with sleep. Goal Time Frame: 4-6 Weeks Goal Progress: Progressing Goal 2:: Pt will be I with a HEP. Goal Time Frame: 4-6 Weeks Goal Progress: Progressing Goal 3:: Pt will increase L knee ext strength to within 90% of R knee to aid with ambulating community distances. Goal Time Frame: 4-6 Weeks Goal Progress: Progressing Goal 4:: Pt will increase L knee ROM to within 90% of R knee to aid with negotiating stairs. Goal Time Frame: 4-6 Weeks Goal Progress: Progressing Anticipated Interventions Anticipated Interventions Patient/Client Instruction: Educate patient on: Plan of Care Therapeutic Exercise to Include: Strength training, Balance training, Body mechanics, Passive ROM and Dynamic Lumbar Stabilization For the Purpose of:: To decrease pain, To increase ROM, To improve muscle performance and motor function and To increase tolerance to activity/condition/position Re-Evaluation Ending Re-evaluation ending: Please do not hesitate to contact me at [phone] by phone or if you have questions or concerns regarding this new plan of care! Sincerely, Kalin Cormier, PT, ATC
--- NOTE | 2024-03-26 14:06 | HP.PTREVAL ---
Re-Evaluation Intro: Dr. Andres Donis MD, It has been my pleasure to treat DAVION URIOSTEGUI over the last 15 visits for L TKA 01/28/24. Please see the progress note below for an update on the physical therapy plan of care! Subjective Subjective: I am getting better, but I still need more PT. Objective Objective/Function: L knee pain ranges from 2-5/10 (worst at night) L knee ROM: flex= 30, ext= 47 #F L knee ROM: 0-120 Pt is progressing well with all aspects at this time, but still lacks functional strength to perform tasks such as stair negotiation without difficulty Plan Plan Plan: 03/26/24- focus on core strengthening and L knee ROM/strengthening Balance/Gait/Functional tests Balance/Special Test Scores Lower Extremity Functional Score: 53 WOMAC Total Score: 43 WOMAC Percentage: 55.2100 Goals Goals Goal 1:: Pt will decrease pain by 50% to aid with sleep. Goal Time Frame: 4-6 Weeks Goal Progress: Progressing Goal 2:: Pt will be I with a HEP. Goal Time Frame: 4-6 Weeks Goal Progress: Progressing Goal 3:: Pt will increase L knee ext strength to within 90% of R knee to aid with ambulating community distances. Goal Time Frame: 4-6 Weeks Goal Progress: Goal Met Goal 4:: Pt will increase L knee ROM to within 90% of R knee to aid with negotiating stairs. Goal Time Frame: 4-6 Weeks Goal Progress: Progressing Anticipated Interventions Anticipated Interventions Patient/Client Instruction: Educate patient on: Plan of Care Therapeutic Exercise to Include: Strength training, Balance training, Body mechanics, Passive ROM and Dynamic Lumbar Stabilization For the Purpose of:: To decrease pain, To increase ROM, To improve muscle performance and motor function and To increase tolerance to activity/condition/position Re-Evaluation Ending Re-evaluation ending: Please do not hesitate to contact me at [phone] by phone or if you have questions or concerns regarding this new plan of care! Sincerely, Kalin Cormier, PT, ATC
--- NOTE | 2024-04-24 13:43 | HP.PTDCSUM ---
Discharge Summary D/C summary: It has been my pleasure to treat DAVION URIOSTEGUI referred by Dr. Andres Donsi MD, with the diagnosis of L TKA 01/28/24 for a total of 23 visit(s). Discharge Date: Please see the following information for a summary of their discharge status. Subjective Subjective: I feel really good today Pain L TKA: Pain Intensity (Out of 10): 0 Overall Improvement % Improvement: 90 Objective Objective/Function: L knee pain 0/10 L knee ROM: 0-120 degrees L knee MMT: flex= 27, ext= 42 #F Rx goals achieved Goals Goal 1:: Pt will decrease pain by 50% to aid with sleep. Goal Progress: Goal Met Goal 2:: Pt will be I with a HEP. Goal Progress: Goal Met Goal 3:: Pt will increase L knee ext strength to within 90% of R knee to aid with ambulating community distances. Goal Progress: Goal Met Goal 4:: Pt will increase L knee ROM to within 90% of R knee to aid with negotiating stairs. Goal Progress: Goal Met Plan Plan: [facility]charge to [facility] D/C Information d/c sentence: If there are questions or concerns regarding this patient's physical therapy, please feel free to call me at [phone]. Thank you for the referral of this patient. Sincerely, Kalin Cormier, PT, ATC Balance/Gait/Functional tests Balance/Special Test Scores Lower Extremity Functional Score: 53 WOMAC Total Score: 22 WOMAC Percentage: 77.0900 Improvement % Improvement: 90
== END 2024-04-24 19:00 | disposition home or self-care (01) ==
LOC: PT 12:30
PROVIDERS: PCP Internal Medicine; Referring Provider Family Medicine Geriatric Medicine; Visit Provider Family Medicine Geriatric Medicine
DX: Z96.652 Presence of left artificial knee joint (principal)
CPT/HCPCS: 97110; 97161; 97530

== ENCOUNTER → 2024-11-04 | Outpatient (CLI) | payer MEDICARE, BC, SELFPAY ==
--- NOTE | 2024-11-04 14:23 | BI_ITS ---
EXAM: SCRN MAMM (CAD)W/JOSE BILAT DATE: 11/04/2024 CLINICAL HISTORY: F, Age 69 y/o , BREAST CANCER SCREENING No family history. TECHNIQUE: SCRN MAMM (CAD)W/JOSE BILAT COMPARISON: Prior exam(s) dated April 06, 2021.. FINDINGS: TISSUE DENSITY: There are scattered areas of fibroglandular density. Bilateral Breast Mammographic Findings: No significant masses, calcifications or other abnormalities are identified. Stable calcified nodule in the upper-outer aspect of the left breast. Stable bilateral fat containing axillary lymph nodes. No suspicious masses, areas of developing architectural distortion, or suspicious calcifications. There has been no significant interval change. BI/SCRN MAMM (CAD)W/JOSE BILAT IMPRESSION: Stable examination. OVERALL FINAL ASSESSMENT BI-RADS 2: BENIGN RECOMMEND ANNUAL MAMMOGRAPHIC SCREENING. RECOMMENDATION: Routine annual follow-up in 1 Year A letter with findings and recommendations will be mailed to the patient. Reading Location: [place] [id number]
--- NOTE | 2024-11-04 14:27 | BD_ITS ---
PROCEDURE: DEXA BONE DENSITY STUDY 11/04/2024 REASON FOR EXAM: F, age 69 y/o . Postmenopausal. TECHNIQUE: DEXA BONE DENSITY STUDY COMPARISON: Prior study dated April 06, 2021. FINDINGS: BMD and T-SCORES Lumbar spine: 0.828 g/cm2, T-score -2.5 Levels: L1 through L4 Change from prior: Loss of 6.1%. Left femoral neck: 0.588 g/cm2, T-score -2.4 Femoral neck comparison data not recommended for monitoring change. Left total hip: 0.685 g/cm2, T-score -2.1 Change from prior: Loss of 10.7%. Right femoral neck: 0.617 g/cm2, T-score -2.1 Femoral neck comparison data not recommended for monitoring change. Right total hip: 0.754 g/cm2, T-score -1.5 Change from prior: Loss of 4.6%. Left 1/3 radius: g/cm2, T-score Change from prior: . Right 1/3 radius: g/cm2, T-score Change from prior: . The World Health Organization has defined the following categories based on bone density: Normal bone density: T-score equal to or greater than -1.0 Osteopenia: T-score between -1.0 and -2.5 Osteoporosis: T-score equal to or less than -2.5 The patient does meet the pharmacological treatment recommendations for prevention of osteoporosis. BD/Dexa Bone Density Study IMPRESSION: OSTEOPENIA. Recommend follow-up as clinically warranted. Reading Location: [place] [address]
== END | disposition home or self-care (01) ==
LOC: OPBD 14:21
PROVIDERS: PCP Internal Medicine; Referring Provider Internal Medicine; Visit Provider Internal Medicine
DX: Z12.31 Encounter for screening mammogram for malignant neoplasm of breast (principal); Z78.0 Asymptomatic menopausal state; M85.80 Other specified disorders of bone density and structure, unspecified site
CPT/HCPCS: 77063; 77067; 77080

== ENCOUNTER → 2024-11-14 | Outpatient (CLI) | payer MEDICARE, BC, SELFPAY | END | disposition home or self-care (01) | LOC: PSN 08:01 | PROVIDERS: PCP Internal Medicine; Referring Provider Specialist; Visit Provider Specialist | DX: Z01.818 Encounter for other preprocedural examination (principal) | CPT/HCPCS: 93005 ==

== ENCOUNTER → 2025-03-12 | Outpatient (CLI) | payer MEDICARE, BC, SELFPAY ==
[2025-03-12 11:03] LABS: AST(SGOT) 40 U/L (<=31); Alanine Aminotransfer ALT/SGPT 23 U/L (<=34); Albumin, Serum 4.1 g/dL (3.4-4.8); Alkaline Phosphatase 104 U/L (35-104); Anion Gap 10 (5-15); BUN 14 mg/dL (4-19); BUN/Creat Ratio 22.2 RATIO (10-20); Calcium,Total 9.5 mg/dL (7.6-11.0); Carbon Dioxide 26.0 mmol/L (21.0-32.0); Chloride 101 mmol/L (98-108); Cholesterol 242 mg/dL (<=200); Globulin 2.8 g/dL (2.2-4.2); Glucose 120 mg/dL (70-99); Low Density Lipoprotein Calc. 165 mg/dL; Potassium 4.7 mmol/L (3.3-5.1); Triglycerides 129 mg/dL; Very Low Density Lipoprotein 26 mg/dL (5-40); cholesterol:hdl ratio screen 4.50
== END | disposition home or self-care (01) ==
LOC: MTLAB 08:47
PROVIDERS: PCP Internal Medicine; Referring Provider Internal Medicine; Visit Provider Internal Medicine
DX: I25.10 Atherosclerotic heart disease of native coronary artery without angina pectoris (principal)
CPT/HCPCS: 36415; 80053; 80061